=== PATIENT | female | born 1945 | race Caucasian/White ===

== ENCOUNTER → 2019-08-18 | Day surgery (SDC) | payer OTHER ==
[2019-08-15 12:14] LABS: Absolute Lymphocytes (CBC) 1.9 K/uL (0.7-4.9); Basophils % 1.3 % (0-1.3); Hematocrit 42.8 % (36.0-45.0); Lymphocytes % 29.4 % (15.3-44.8); MPV 9.3 fL (7.6-11.3); RBC Red Blood Cell Count 4.43 M/uL (3.86-4.86)
[2019-08-15 12:18] LABS: Urine Appearance CLEAR; Urine Bilirubin NEGATIVE (NEG); Urine Blood NEGATIVE (NEG); Urine Color YELLOW; Urine Glucose NEGATIVE (NEG); Urine Protein NEGATIVE (NEG)
[2019-08-15 12:21] LABS: Protime INR 1.01
[2019-08-15 12:24] LABS: Urine Microscopic Reflex NO UMIC
[2019-08-15 12:31] LABS: Potassium 4.1 mmol/L (3.5-5.1)
[~2019-08-18] MED LIST: CEFAZOLIN/SWI 2gm 0 GM/0 ML SYR ONE; NA CHLORIDE 0.9% 0 ML ONE; PHENAZOPYRIDINE 100MG TAB PO ONE
[2019-08-18 11:07] VITALS: BP 177/59; TEMP 98; O2SAT 100
== END ==
LOC: OR 10:24
PROVIDERS: ATTEND Obstetrics & Gynecology
DX: N99.3 Prolapse of vaginal vault after hysterectomy (principal); Z53.8 Procedure and treatment not carried out for other reasons; N81.12 Cystocele, lateral; N95.2 Postmenopausal atrophic vaginitis; N32.81 Overactive bladder; E11.65 Type 2 diabetes mellitus with hyperglycemia; I10 Essential (primary) hypertension; E03.9 Hypothyroidism, unspecified; E78.00 Pure hypercholesterolemia, unspecified; M81.0 Age-related osteoporosis without current pathological fracture
CPT/HCPCS: 36415; 80048; 81003; 82947; 85025; 85610; 85730; 86850; 86900; 86901; J0690; J7030

== ENCOUNTER 2019-08-23 10:37 | Observation (INO) | payer OTHER ==
[2019-08-23] MEDS ORDERED: PHENAZOPYRIDINE 100MG TAB PO ONE ×2 (10:50→10:53)
[2019-08-23] MEDS ORDERED: Ringers Lactate 1,000 ML IV ONE ×4 (10:53→18:49)
[2019-08-23] MEDS ORDERED: CEFAZOLIN/SWI 2gm 2 GM/20 ML SYR ONE (10:53)
[2019-08-23] MEDS ORDERED: FENTANYL CITR 250 MCG/5 ML ONE (11:02)
[2019-08-23] MEDS ORDERED: MIDAZOLAM HCL 2 MG/2 ML INJ ONE (11:02)
[2019-08-23] MEDS ORDERED: ROCURONIUM 50 MG/5 ML VIAL IV ONE (11:02)
[2019-08-23] MEDS ORDERED: dexAMETHasone 10 MG/ML VIAL ONE (11:02)
[2019-08-23] MEDS ORDERED: LIDOCAINE 2% MPF 5 ML VIAL ONE (11:02)
[2019-08-23] MEDS ORDERED: propofoL 200 MG/20 ML VIAL IV ONE (11:02)
[2019-08-23] MEDS ORDERED: NA CIT/CITRIC AC 30 ML ORAL UDC PO ONE (11:30)
[2019-08-23] MEDS ORDERED: NA CIT/CITRIC AC 30 ML ORAL UDC ONE (11:31)
[2019-08-23] MEDS ORDERED: NA CHLORIDE 0.9% 100 ML IV ONE (11:45)
[2019-08-23] MEDS ORDERED: CEFAZOLIN/SWI 1gm 1 GM/10 ML SYR ONE (11:46)
[2019-08-23] MEDS ORDERED: BUPIVACAINE 0.25% PF 30 ML VIAL ONE (12:03)
[2019-08-23] MEDS ORDERED: GLYCOPYRROLATE 0.2 MG/ML SYR ONE ×4 (12:42→15:31)
[2019-08-23] MEDS: VASOPRESSIN 20 UNIT/ML VIAL ONE ×2 (13:13→14:30)
[2019-08-23] MEDS ORDERED: FENTANYL CITR 100 MCG/2 ML ONE (16:08)
[2019-08-23] MEDS ORDERED: NEOSTIGMINE 1 MG/ML -10 ML VIAL ONE (16:08)
[2019-08-23] MEDS ORDERED: CEFAZOLIN SODIUM 1 GM/VIAL ONE (16:21)
[2019-08-23] MEDS ORDERED: PROMETHAZINE INJ 25 MG/ML AMP IV PRN (17:46)
[2019-08-23] MEDS ORDERED: MEPERIDINE HCL 50 MG/ML IV PRN (17:46)
[2019-08-23] MEDS ORDERED: ONDANSETRON 4 MG/2 ML VIAL IV PRN (17:46)
[2019-08-23] MEDS ORDERED: GLUCAGON 1 MG/VIAL IM PRN (17:51)
[2019-08-23] MEDS ORDERED: D50W 25 GM/50 ML SYRINGE/VIAL IV PRN (17:51)
[2019-08-23] MEDS ORDERED: Ringers Lactate 1,000 ML IV SCH (18:00)
[2019-08-23] MEDS: MORPHINE 4 MG/ML SYR ONE ×2 (18:34→18:50)
[2019-08-23 19:01] VITALS: O2SAT 94
[2019-08-23 20:39] VITALS: BMI 25.7
[2019-08-23] MEDS: atenoloL 25 MG TAB PO SCH (21:00)
[2019-08-23] MEDS ORDERED: INSULIN -REGULAR HUMAN 50 UNIT/0.5 ML ML SQ SCH (21:00)
[2019-08-23] MEDS ORDERED: INSULIN -REGULAR HUMAN 50 UNIT/0.5 ML ML ONE (21:35)
[2019-08-24] MEDS: CEFAZOLIN/SWI 1gm 1 GM/10 ML SYR IVP SCH (00:53)
[2019-08-24] MEDS: HYDROCODONE/APAP 5/325 MG TAB PO PRN ×3 (04:35→14:59)
[2019-08-24 05:27] LABS: Absolute Lymphocytes (CBC) 1.6 K/uL (0.7-4.9); Basophils % 0.3 % (0-1.3); Hematocrit 35.7 % (36.0-45.0); Lymphocytes % 11.7 % (15.3-44.8); MPV 9.2 fL (7.6-11.3)
[2019-08-24] MEDS: LEVOTHYROXINE SOD 0.088 MG TAB PO SCH (06:00)
[2019-08-24] MEDS ORDERED: PANTOPRAZOLE 40MG TABLET PO SCH (06:30)
[2019-08-24] MEDS: atenoloL 25 MG TAB PO SCH ×2 (08:48→21:00)
[2019-08-24] MEDS: GLIMEPIRIDE 2 MG TABLET PO SCH (08:49)
[2019-08-24] MEDS: METFORMIN ER 500 MG TAB PO SCH (08:49)
[2019-08-24] MEDS: hydroCHLOROthiazide 12.5 MG CAP PO SCH (08:50)
[2019-08-24] MEDS ORDERED: LOSARTAN POTASSIUM 50 MG TABLET PO SCH (09:00)
[2019-08-24] MEDS: ACETAMINOPHEN 500 MG TAB PO PRN (22:57)
[2019-08-25] MEDS: LEVOTHYROXINE SOD 0.088 MG TAB PO SCH (06:00)
[2019-08-25] MEDS: ACETAMINOPHEN 500 MG TAB PO PRN ×2 (07:25→12:53)
[2019-08-25] MEDS: HYDROCODONE/APAP 5/325 MG TAB PO PRN ×2 (08:23→15:10)
[2019-08-25] MEDS: CEFAZOLIN/SWI 1gm 1 GM/10 ML SYR IVP SCH (09:00)
[2019-08-25] MEDS: GLIMEPIRIDE 2 MG TABLET PO SCH (09:05)
[2019-08-25] MEDS: METFORMIN ER 500 MG TAB PO SCH (09:05)
[2019-08-25] MEDS: hydroCHLOROthiazide 12.5 MG CAP PO SCH (09:05)
[2019-08-25] MEDS: atenoloL 25 MG TAB PO SCH (09:05)
[2019-08-25] MEDS ORDERED: LOSARTAN POTASSIUM 50 MG TABLET PO SCH (09:05)
[2019-08-25 17:00] VITALS: BP 157/77; TEMP 98.4
--- NOTE | 2019-08-26 08:32 | DS ---
Date of Discharge: 08/25/2019 Preoperative Diagnosis: Pelvic fluid prolapse and occult stress urinary incontinence. Discharge Diagnoses: 1.Pelvic fluid prolapse and occult stress urinary incontinence. 2.Diabetes. 3.Hypertension, preexisting. Hospital Course: Patient was electively admitted to the hospital for surgery to repair her prolapse. Once this was done, she was admitted to the floor for recovery. Next morning on postop day #1 she tolerated clear liquids well, however, still nauseous. No flatus was passed. The patient was very s edated and did not appear to be well oriented and still under the effect of the sedative and anesthet ic. Her blood sugars were still less than 200, did not need to be covered under the mild insulin sli ding scale, however, she was given her home medications for hypertension and diabetes and she was wel l managed throughout her stay. She also received Ancef 1 g q.8 hours in the first 24 hours postop. Today on postop day #2 she has been passing flatus, ambulating, tolerating soft diet. She had a void ing trial done after removal of catheter on postop day 1 yesterday, did not pass it, had 900 residual after emptying 150, over distended. Most likely the bladder scan showed 500 and then later found to have 900 when she was cathed. The Swift catheter was reinserted at that time and left in place. She will be discharged home today with the Swift catheter. Overall since she has recovered well and is passing flatus, her abdomen is much less distended. She will be discharged home. She has all discharge instructions to call that a re typed up and antibiotics Augmentin 500 p.o. b.i.d. for 7 days. This is because of the superficial enterotomy repair that was done. Then she was also given instructions for a soft diet due to lisa lin. Then she has pain medication that has been prescribed to her. She also has instructions for removal of Swift catheter when she goes home and then she will come to the office on Thursday at 8:30 f or a voiding trial. She also was given instructions to take probiotics when she gets home and then call with any questions to the office number to talk w ith any concerns. PARVEEN Voice ID: [id number] Report ID: [id number]
--- NOTE | 2019-08-29 01:09 | OP ---
Surgeon: Candis Maravilla MD Manager Product Marketing: Ruth Thompson. 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 Procedures Performed: 1.Laparoscopy, bilateral salpingo-oophorectomy, repair of superficial sigmoid laceration. 2.Vaginal anterior and posterior repairs, right sacrospinous ligament fixation colpopexy, posterior enterocele repair and perineorrhaphy, mid urethral sling, cystoscopy (TVT). Anesthesia: General endotracheal. Specimens: Bilateral ovaries. Complications: Superficial sigmoid laceration that require intraoperative consult. I repaired the l acerations with sutures, did not need any drains or further procedures. Estimated Blood Loss: 100. Urine Output: Greater than 300. Findings: POP-Q 0, +2, -3, 4, moderate 6, -1, 0 NA. Indications For Procedure: Patient is a 74-year-old with prolapse. She has been offered observation physical therapy pessary management and surgical treatment after she understood the benefits and ris ks of all the procedures and her quality of life and she wanted to proceed with surgical repair. The surgical repair options discussed about laparoscopic and vaginal procedures, laparoscopic sacral col popexy was reviewed with the patient and vaginal apical suspension with anterior repairs was also rev iewed as an alternative. On urodynamic testing she had stress urinary incontinence, so plan was to p erform a mid urethral sling as well using a transobturator approach. Discussed all these, possible p erineorrhaphy was discussed with the patient. She had medical clearance and she was well controlled with her diabetes, A1c less than 7. Patient was brought into the hospital electively for the procedure. 2 g of Ancef were given. She wa s taken back to OR. After re-consenting her in the preop area, her daughter was present, we discusse d the alternatives of surgery including observation, pessary, and physical therapy. We also discusse d about the complications, including bleeding, infection, injury to the bowel, bladder, ureters, urin morena retention, need for self catheterization, need for possible revision of the sling if the graft wa s too tight, also discussed about mesh exposure, erosion, very rare complications including fistula, were all reviewed with the patient and discussed about potential dyspareunia. Once all these were re viewed and she wanted to proceed with the procedure, then she was taken back to the OR. Description Of Procedure: She was taken back to OR, placed in supine fashion on the operating table with general anesthesia given. She was placed in a dorsal lithotomy position and Joseph stirrups, arm s tucked by the side. Abdomen, vulva, vagina, and perineum were prepped and draped in a sterile fash ion. Swift was placed to drain the bladder and the vaginal manipulator from [employer] was introduced an d left in place. 1 cm infraumbilical incision was made with a scalpel using the open laparoscopy technique. Fascia wa s incised, tagged with 0 Vicryl sutures, peritoneum entered bluntly, retractors were placed, Renée i ntroduced after insufflation site of entry was checked with the help of the 10 scope, 30 degree lens. No injury. Upper and lower abdominal surfaces were all visualized. There were adhesions of the la rge bowel to the vaginal vault to both lateral greenfield. The small bowel adhesions and appendix adhesio ns in the right lower quadrant. Both ovaries and tubes were in place and the 1 on the right was scar red with the bowel and the appendix. Patient was placed in Trendelenburg. A 5 mm suprapubic and two 8 mm right and left lateral ports wer e placed in the lower quadrants after injecting with Marcaine. After the ports were placed without a ny problems, then the adhesions were taken down systematically by push-spread technique. First, the small bowel was picked up and adhesions were taken down. The appendix was picked up and taken down f rom the peritoneum of the lateral pelvic wall sidewall at the right lower quadrant. It was from the ovary and once the ovary was free, the bowel was retracted superiorly. Then the adhesions of the large bowel to the right sidewall were taken from the vaginal cuff were taken down with sharp scissors, then went over to the left sidewall and these were taken down all the way from below the na tural attachment of the sigmoid in the left lower quadrant. All the adhesions were taken down exposi ng the entire pelvic cavity and the bowel retracted appropriately using 3-0 Monocryl sutures on the s igmoid epiploica through the left upper quadrant incision using the Rylan-Brent needle. The retr action on the bowel was pulled up. Then the presacral space was inspected. No problems. Prior to t he patient going into surgery she recollected that she had some kind of a procedure at the time of he r hysterectomy, which she was not sure was done for which of her symptoms. She did mention that this procedure was done to tuck her muscles to her back or some structure to her back and she had back an d buttock pain for a few weeks that she can recollect postop, which eventually resolved. This sounde d like a procedure for vaginal apex suspension or probably a prolapse repair, however, there was no e vidence of any scar in the presacral space. Once the vaginal cuff was visualized, the peritoneum was incised with scissors and the vesicovaginal space was started with the dissection. The bladder seem ed extremely adhered to the anterior vaginal wall push-spread technique and windows were made here luz diaz down the bladder after dissecting about 3 cm in the midline from the vaginal apex. There was si gnificant scarring on both sides. Despite this once the bladder was taken down to this 2-1/2 cm to 3 cm level from the apex, the tip of the small bipolar scraped the superficial part of the sigmoid col on that was retracted superiorly and so once this was visualized, we went ahead and called our [facility] l surgeon, Dr. Salazar for visualization. There was no evidence of any stool soiling on the instrume nt or visually. The laceration was superficial on the serosa just barely into the muscularis. His a dvice was to put in silk sutures interrupted x2 to imbricate this defect and leave this alone. This was done with the help of 3-0 silk and 2 intracorporeal sutures were placed with knots tied intracorp oreally. Once this was done, I decided that given the adhesions and inability to dissected further d own satisfactorily on the anterior wall and given her vaginal length, which was only about 6 cm, prob ably a bit shorter and the sigmoid laceration that I will abort the procedure abdominally and go down vaginal. At this point both tubes and ovaries were still present in this postmenopausal lady, since the adhesions were already taken down the infundibulopelvic ligaments were identified and isolated a nd then the IP was taken down and the tube and ovary were dissected free from the lateral wall, first on the right side, then on the left side and they were retrieved through the 10 port. Then, thoroug h irrigation and suction of the pelvic cavity was performed. No evidence of any other injury. The r etention suture was removed and then all the ports were removed. The 10 port was closed with the hel p of the tagged 0 Vicryl sutures, tied to each other. All the skin incisions closed with the help of interrupted 4-0 Vicryl sutures. After that area was draped, we went vaginal. The ureterovesical junction was identified and picked u p with an Allis clamp. The apex of the vagina was picked up with another Allis. Then this space abo ut 20 mL of dilute vasopressin 20 units mixed in 50 mL of normal saline 20 mL was injected. Midline incision made, extended above and below all the way to the apex and the UVJ laterally dissected the b ladder away. The anterior vaginal wall was well laid out from [id number]. Then imbricating suture was placed to close the central bladder and reduce the central aspect of the bladder, the center asp ect of the anterior wall. Then without shortening the vagina the sutures on the connective tissue in ferior to the vesicovaginal space were placed with 2-0 PDS, 3 interrupted sutures were placed to brin g the fascia from the lateral aspects together in the midline and the vaginal epithelial closure was performed with the help of a 2-0 Vicryl in a continuous running horizontal mattress fashion once this suture was tied. There was good reduction of the anterior wall. Next procedure to be done was the apical suspension. The hymen was picked up with 2 Allis clamps. Central posterior wall in the mid canal was picked up a s well with another Allis, injected the perineal area and the posterior wall with another 20 mL of va sopressin dilute solution. Then triangular skin incision was made on the perineum. This was dissect ed. Then the rectovaginal space was entered. Vaginal epithelium and sub epithelium were dissected a way from the rectovaginal septum. There was detachment in the inferior aspect in a transverse and ve rtical fashion. The vertical defect laterally was on the right and the transverse defect was in the distal part of the rectovaginal septum and from the perineal body. The perineal body was p ort as well in the proximal part, then superiorly the posterior enterocele was obvious. So, dissecti on was performed to enter the posterior enterocele. The rectovaginal septum or connective tissue was dissected away laterally exposed and the perineal body was exposed as well. The scar was taken down on the lateral aspects. Then after getting to the vaginal apex, the posterior enterocele was separa ashutosh from [id number] and then this was plicated with the help of 3-0 Vicryl suture x1. Once this wa s reduced, I was able to get into the right pararectal space. A skilled spine was palpated, the sacr ospinous ligament was palpated as well. There was difficulty opening up the space clearly and sweepi ng the rectum medially easily. Tip of a long hemostats had to be used to get into this space and pus hed posteriorly and medially to clear the connective tissue off the sacrospinous ligament. I suspect that this space has been operated on before and possibly that there was a stitch attachment which is what the patient had referred to just in the preop area. She had no recollection of this prior to t he discussion on the day of surgery. Carefully once the scar was dissected and the sacrospinous ligament was exposed, the mid ligament was identified and 0 Prolene sutures x2 were placed using the Capio device in the mid to lateral third o f the ligament. Once these were placed, they were held on 2 clamps then the potential distal uterosa cral ligaments were grasped with Allis clamps after dissecting past the vaginal apex and then once th kodi were held on the respective clamps, the Prolene sutures were passed, the medial 1 was passed thro ugh the 1 on the right and then the lateral suture on the sacrospinous was passed through both the le ft and the right distal uterosacral/connective tissue condensation at the top of the vaginal apex. N o penetration through the vaginal epithelium was noted. These were again retracted and kept aside on a straight and curved hemostats. Then the rectovaginal septum defect was closed with the help of 2-0 PDS in a continuous running fashion starting on the lef t side and closing the transverse distal rectovaginal septum to the perineal body. First, the perine al body was rebuilt with the help of 2-0 Vicryl interrupted sutures x2 from [id number]. This repai r was performed and a finger was placed in the rectum as well while performing this. Once the gloves were changed the sutures were tied, then the PDS suture was used to connect the recto vaginal septum to this reconstruct perineal body and then the repair on the right lateral vertical de fect was done, attaching it to the sidewall. Once all this was done and repaired, the posterior ente rocele was fully reduced, however, it was very difficult to take the retracted rectovaginal septum in the proximal edge all the way to the apex, so this was left alone having repaired the center with th e help of a continuous running 2-0 PDS, I left this alone. On the rectovaginal exam, the area appear ed to be well supported. Then once the gloves were changed, the vaginal epithelium was barely trimme d to make the edges even. Previous scar was noted as well and this was trimmed. No vaginal length w as compromised. The suture with 2-0 Vicryl was started on top of the vaginal apex done for at least 2 cm to 3 cm, then the sacrospinous sutures were tied down, the vaginal apex did go all the way down to the sacrospinous here. Once this was done, the vaginal epithelial closure was performed. The dep th was good. There was no excessive tension of the apex and both anterior and posterior prolapse was well reduced along with the apex. The perineal body also appeared to be robust. Closure here with 3-0 Vicryl was done in a subcuticular fashion and tied inside the hymen. There was some stool soiling during the case while I was moving from the laparoscopic to the vaginal. She was re-prepped and draped for my vaginal procedure. No further stool swelling had occurred once the vaginal case was started. Two Allis clamps were placed in the mid urethral area after injecting with dilute vasopressin. The i ncision was made 1.5 cm in the mid urethral area. Dissection was performed with Metzenbaum scissors to create an opening underneath the vaginal subepithelial connective tissue in the plane going toward s the obturator space on the ipsilateral side with 45 degree angle to the horizontal and vertical dallas edinson hugging the inferior pubic ramus. Once the obturator membrane was perforated, the tract was open ed up on both sides, then wing guide was placed, transobturator TVT was opened and the spikes were pa ssed in the usual fashion on both sides exiting the lateral groin fold about 2 cm lateral to the groi n fold, a centimeter higher than the horizontal line dropped at the level of the external meatus with out getting as high as adductor tendon. Once these plastic dilators were pulled through, the plastic sheaths were held with Cheyenne's, tensioning under the mid urethra was done with the help of Jeannine m scissors. Once the mesh was tensioned appropriately, the sheaths were pulled out, mesh cut and flu shed with the skin and skin pulled so that it does not retract as a graft in the vaginal epithelial c losure with the help of 3-0 Vicryl in a continuous running horizontal mattress fashion was done. Cys toscopy was done after the catheter was removed and there was no evidence of electromechanical or the rmal injury to the bladder from dissecting either the top or from the vaginal dissection. Both ureteric orifices had strong jets of urine from both and no evidence of any foreign body in the bladder. The Swift was replaced. Vaginal packing was placed. Rectal exam was performed. No suture s in the bowel from the sacrospinous either. Instrument, needle, and sponge counts were correct. EB L was minimal. Patient tolerated the procedure well. She will follow up with me in for her postop. Another gram of Ancef was given to this patient. Swift left in place. SAJAN/BOONE Voice ID: [id number] Report ID: [id number]
== END 2019-08-25 18:45 | disposition home or self-care (01) ==
LOC: OR 10:37 → 2ND-WC 17:46 → OR 08-24 13:54 → 2ND-WC 08-24 13:55 → INTOOBSV 08-24 13:55 → OBSVTOIN 08-24 13:55
PROVIDERS: ADMIT Obstetrics & Gynecology; ATTEND Obstetrics & Gynecology
PROC: 0UT74ZZ Resection of Bilateral Fallopian Tubes, Percutaneous Endoscopic Approach (ICD-10-PCS; 2019-08-23)
PROC: 0DQN4ZZ Repair Sigmoid Colon, Percutaneous Endoscopic Approach (ICD-10-PCS; 2019-08-23)
PROC: 0USG7ZZ Reposition Vagina, Via Natural or Artificial Opening (ICD-10-PCS; 2019-08-23)
PROC: 0UQF0ZZ Repair Cul-de-sac, Open Approach (ICD-10-PCS; 2019-08-23)
PROC: 0JQC0ZZ Repair Pelvic Region Subcutaneous Tissue and Fascia, Open Approach (ICD-10-PCS; 2019-08-23)
PROC: 0WQN0ZZ Repair Female Perineum, Open Approach (ICD-10-PCS; 2019-08-23)
PROC: 0TSD0ZZ Reposition Urethra, Open Approach (ICD-10-PCS; 2019-08-23)
PROC: 0UT24ZZ Resection of Bilateral Ovaries, Percutaneous Endoscopic Approach (ICD-10-PCS; principal; 2019-08-23 12:00)
DX: N81.6 Rectocele (principal); N39.3 Stress incontinence (female) (male); K66.0 Peritoneal adhesions (postprocedural) (postinfection); K91.72 Accidental puncture and laceration of a digestive system organ or structure during other procedure; Y76.3 Surgical instruments, materials and obstetric and gynecological devices (including sutures) associated with adverse incidents; Y92.234 Operating room of hospital as the place of occurrence of the external cause; K59.00 Constipation, unspecified; I10 Essential (primary) hypertension; E11.9 Type 2 diabetes mellitus without complications
CPT/HCPCS: 85025; 36415; 86900; 86850; 86901; 82947 ×6; 88307; 58661; 44604; 57282; 57265; 57288; J2704; J2710; J2550; J2250; J3010 ×2; J1100; J0690 ×4; G0378 ×6; J7120 ×5; J2405; G0379; 88305

== ENCOUNTER 2019-08-27 13:21 | Emergency (ER) | payer OTHER ==
--- NOTE | 2019-08-27 14:25 | EDPHYS ---
Physician Documentation [facility] Name: Adri Serrano Age: 74 yrs Sex: Female : 1945 Arrival Date: 08/27/2019 Time: 13:24 Bed 13 Private MD: Montse Leonard C ED Physician Ozzy Granados HPI: 08/27 13:51 This 74 yrs old Female presents to ER via Wheelchair with complaints of zeinab Urinary Problem. 13:51 The patient presents with urinary symptoms, urinary retention. Onset: The zeinab symptoms/episode began/occurred this morning, today. Modifying factors: The symptoms are alleviated by nothing, the symptoms are aggravated by nothing. Associated signs and symptoms: The patient has no apparent associated signs or symptoms. Severity of symptoms: At their worst the symptoms were mild, in the emergency department the symptoms are unchanged. The patient is not sexually active. Historical: - Allergies: 13:36 Ibuprofen; sv - PMHx: 13:36 Thyroid problem; Diabetes - NIDDM; sv - PSHx: 13:36 Hysterectomy; Oophorectomy; Falopian tubes removed; "tummy tuck"; sv - Immunization history:: Flu vaccine is not up to date. - Social history:: Smoking status: Patient/guardian denies using tobacco. - Ebola Screening: : No symptoms or risks identified at this time. - Family history:: not pertinent. ROS: 13:51 Constitutional: Negative for fever, chills, and weight loss, Eyes: Negative for injury, zeinab pain, redness, and discharge, ENT: Negative for injury, pain, and discharge, Neck: Negative for injury, pain, and swelling, Cardiovascular: Negative for chest pain, palpitations, and edema, Respiratory: Negative for shortness of breath, cough, wheezing, and pleuritic chest pain, Back: Negative for injury and pain, : Negative for injury, bleeding, discharge, and swelling, Skin: Negative for injury, rash, and discoloration, Neuro: Negative for headache, weakness, numbness, tingling, and seizure, Psych: Negative for depression, anxiety, suicide ideation, homicidal ideation, and hallucinations, Allergy/Immunology: Negative for hives, rash, and allergies, Endocrine: Negative for neck swelling, polydipsia, polyuria, polyphagia, and marked weight changes, Hematologic/Lymphatic: Negative for swollen nodes, abnormal bleeding, and unusual bruising. 13:51 Abdomen/GI: Positive for abdominal pain, of the suprapubic area. Exam: 13:51 Constitutional: This is a well developed, well nourished patient who is awake, alert, zeinab and in no acute distress. Head/Face: Normocephalic, atraumatic. Eyes: Pupils equal round and reactive to light, extra-ocular motions intact. Lids and lashes normal. Conjunctiva and sclera are non-icteric and not injected. Cornea within normal limits. Periorbital areas with no swelling, redness, or edema. ENT: Nares patent. No nasal discharge, no septal abnormalities noted. Tympanic membranes are normal and external auditory canals are clear. Oropharynx with no redness, swelling, or masses, exudates, or evidence of obstruction, uvula midline. Mucous membranes moist. Neck: Trachea midline, no thyromegaly or masses palpated, and no cervical lymphadenopathy. Supple, full range of motion without nuchal rigidity, or vertebral point tenderness. No Meningismus. Chest/axilla: Normal chest wall appearance and motion. Nontender with no deformity. No lesions are appreciated. Cardiovascular: Regular rate and rhythm with a normal S1 and S2. No gallops, murmurs, or rubs. Normal PMI, no JVD. No pulse deficits. Respiratory: Lungs have equal breath sounds bilaterally, clear to auscultation and percussion. No rales, rhonchi or wheezes noted. No increased work of breathing, no retractions or nasal flaring. Back: No spinal tenderness. No costovertebral tenderness. Full range of motion. Skin: Warm, dry with normal turgor. Normal color with no rashes, no lesions, and no evidence of cellulitis. MS/ Extremity: Pulses equal, no cyanosis. Neurovascular intact. Full, normal range of motion. Neuro: Awake and alert, GCS 15, oriented to person, place, time, and situation. Cranial nerves II-XII grossly intact. Motor strength 5/5 in all extremities. Sensory grossly intact. Cerebellar exam normal. Normal gait. Psych: Awake, alert, with orientation to person, place and time. Behavior, mood, and affect are within normal limits. 13:51 Abdomen/GI: Inspection: abdomen appears normal, Bowel sounds: normal, Palpation: mild abdominal tenderness, in the suprapubic area, Liver: no appreciated palpable abnormalities, Hernia: not appreciated. Vital Signs: 13:36 BP 161 / 69; Pulse 61; Resp 17; Temp 97; Pulse Ox 94% ; Weight 58.97 kg; Height 5 ft. 0 sv in. (152.40 cm); 14:30 BP 163 / 65; Pulse 63; Resp 17; Pulse Ox 99% on R/A; rb1 15:10 BP 164 / 60; Pulse 56; Resp 17; Pulse Ox 97% on R/A; Pain 3/10; rb1 13:36 Body Mass Index 25.39 (58.97 kg, 152.40 cm) sv MDM: 13:26 Patient medically screened. [facility] 13:55 Data reviewed: vital signs, nurses notes, lab test result(s), urinalysis. [facility] 08/27 13:56 Order name: Urine Culture [facility] 08/27 13:56 Order name: Urine Dipstick-Ancillary (obtain specimen); Complete Time: 14:52 [facility] Administered Medications: No medications were administered Disposition: 08/27/19 14:24 Discharged to Home. Impression: Dysuria. - Condition is Stable. - Discharge Instructions: Dysuria, Swift Catheter Care, Adult, Swift Catheter Care, Adult, [id number]. - Medication Reconciliation Form, Thank You Letter, Antibiotic Education, Prescription Opioid Use form. - Follow up: Candis Maravilla MD; When: 1 - 2 days; Reason: Recheck today's complaints, Continuance of care, Re-evaluation by your physician. - Problem is new. - Symptoms have improved. Signatures: Dispatcher [employer] [facility] Tram Ramírez RN RN Ozzy Murray MD MD cha Barber, Rebecca, RN RN rb1 Corrections: (The following items were deleted from the chart) 14:21 13:50 Misc. Order ordered. [place] [id number] 15:19 14:24 08/27/2019 14:24 Discharged to Home. Impression: Dysuria. Condition is Stable. rb1 Forms are Medication Reconciliation Form, Thank You Letter, Antibiotic Education, Prescription Opioid Use. Follow up: Candis Maravilla; When: 1 - 2 days; Reason: Recheck today's complaints, Continuance of care, Re-evaluation by your physician. Problem is new. Symptoms have improved. zeinab
--- NOTE | 2019-08-27 14:25 | ER ---
Nurse's Notes [facility] Name: Adri Serrano Age: 74 yrs Sex: Female : 1945 Arrival Date: 08/27/2019 Time: 13:24 Bed 13 Private MD: Montse Leonard C Diagnosis: Dysuria Presentation: 08/27 13:33 Presenting complaint: Patient states: has not had as much urine output as she was sv having since 0100 today, pt has a michele catheter. Reports having sx with Dr Maravilla recently and had her ovaries, fallopian tubes removed and a cystocele. Transition of care: patient was not received from another setting of care. Onset of symptoms was August 27, 2019. Risk Assessment: Do you want to hurt yourself or someone else? Patient reports no desire to harm self or others. Initial Sepsis Screen: Does the patient meet any 2 criteria? No. Patient's initial sepsis screen is negative. Does the patient have a suspected source of infection? No. Patient's initial sepsis screen is negative. Care prior to arrival: None. 13:33 Method Of Arrival: Wheelchair sv 13:33 Acuity: LAMAR 3 sv Historical: - Allergies: 13:36 Ibuprofen; sv - PMHx: 13:36 Thyroid problem; Diabetes - NIDDM; sv - PSHx: 13:36 Hysterectomy; Oophorectomy; Falopian tubes removed; "tummy tuck"; sv - Immunization history:: Flu vaccine is not up to date. - Social history:: Smoking status: Patient/guardian denies using tobacco. - Ebola Screening: : No symptoms or risks identified at this time. - Family history:: not pertinent. Screenin:17 Abuse screen: Denies threats or abuse. Nutritional screening: No deficits noted. rb1 Tuberculosis screening: No symptoms or risk factors identified. Fall Risk None identified. Assessment: 13:30 General: Appears in no apparent distress. comfortable, Behavior is calm, cooperative, rb1 Denies fever. Pain: Complains of pain in suprapubic area Pain currently is 6 out of 10 on a pain scale. Neuro: Level of Consciousness is awake, alert, obeys commands, Oriented to person, place, time, situation. Cardiovascular: Capillary refill < 3 seconds is brisk in bilateral fingers. Respiratory: Airway is patent Respiratory effort is even, unlabored, Respiratory pattern is regular, symmetrical. GI: No signs and/or symptoms were reported involving the gastrointestinal system. : Reports Concerned that she hasn't had much urine output since 0100 this morning. Reports that urine hasn't been flowing into the bag. Derm: Skin is pink, warm \\T\\ dry. 14:17 Reassessment: Emptied and measured pt. Michele, 500 ml output since 0100 this morning. rb1 Pt. is averaging 38.46 ml/hr, urine is clear, light yellow. After emptying the Michele, urine began to flow again, no blockage noted. Provider notified. Received verbal order to cancel the irrigation of the Michele. 15:10 Reassessment: Patient appears in no apparent distress at this time. Patient and/or rb1 family updated on plan of care and expected duration. Pain level reassessed. Patient is alert, oriented x 3, equal unlabored respirations, skin warm/dry/pink. Clear, yellow urine is draining into the Michele bag. Vital Signs: 13:36 BP 161 / 69; Pulse 61; Resp 17; Temp 97; Pulse Ox 94% ; Weight 58.97 kg; Height 5 ft. 0 sv in. (152.40 cm); 14:30 BP 163 / 65; Pulse 63; Resp 17; Pulse Ox 99% on R/A; rb1 15:10 BP 164 / 60; Pulse 56; Resp 17; Pulse Ox 97% on R/A; Pain 3/10; rb1 13:36 Body Mass Index 25.39 (58.97 kg, 152.40 cm) sv ED Course: 13:24 Patient arrived in ED. ag5 13:25 Montse Leonard MD is Private Physician. ag5 13:25 Ozzy Granados MD is Attending Physician. zeinab 13:35 Triage completed. sv 13:36 Arm band placed on. sv 13:38 Ann Olson, TANYA is Primary Nurse. rb1 14:17 Patient has correct armband on for positive identification. Bed in low position. Call rb1 light in reach. Side rails up X 1. Pulse ox on. NIBP on. Warm blanket given. 14:24 Candis Maravilla MD is Referral Physician. zeinab 14:51 Urine collected: Michele catheter specimen, clear, natacha colored. jp3 14:52 Urine Culture Sent. jp3 15:18 No provider procedures requiring assistance completed. Patient did not have IV access rb1 during this emergency room visit. Administered Medications: No medications were administered Intake: 15:10 clear, yellow urine. rb1 Output: 15:10 Urine: 175ml (Michele); Total: 175ml. rb1 15:10 clear, yellow urine. rb1 Outcome: 14:24 Discharge ordered by . zeinab 15:18 Discharged to home ambulatory, with family. rb1 15:18 Condition: stable 15:18 Discharge instructions given to patient, Instructed on discharge instructions, follow up and referral plans. Demonstrated understanding of instructions, follow-up care, Prescriptions given X none 15:19 Patient left the ED. rb1 Signatures: Tram Ramírez, RN Ozzy Gooden MD MD cha Barber, Rebecca, RN RN rb1 Mauricio Ingram jp3 Anders Ortiz ag5
[2019-08-27 15:24] VITALS: TEMP 97
[2019-08-27 15:26] VITALS: BP 164/60; O2SAT 97
== END 2019-08-27 15:19 | disposition home or self-care (01) ==
LOC: ER 13:21
DX: T83.098A Other mechanical complication of other urinary catheter, initial encounter (principal); R30.0 Dysuria
CPT/HCPCS: 87086; 87088; 99283

== ENCOUNTER 2021-07-31 12:51 | Emergency (ER) | payer OTHER ==
[2021-07-31] MEDS ORDERED: LIDOCAINE VISCOUS 2% SOLN 15 ML UDC ONE (13:52)
[2021-07-31] MEDS ORDERED: MAGNES/ALUMIN/SIMET 30ML UCUP ONE (13:52)
--- NOTE | 2021-07-31 15:19 | EDPHYS ---
Physician Documentation [facility] Name: Adri Serrano Age: 76 yrs Sex: Female : 1945 Arrival Date: 07/31/2021 Time: 12:53 Bed 11 Private MD: ED Physician Margarito Miller HPI: 07/31 13:35 This 76 yrs old Female presents to ER via Ambulatory with complaints of Sore kb Throat. 13:35 The patient presents with sore throat. The patient describes throat pain as constant. kb Onset: The symptoms/episode began/occurred this morning, at 03:00. Severity of symptoms: At their worst the symptoms were mild, moderate, in the emergency department the symptoms are unchanged. Modifying factors: The symptoms are alleviated by nothing, the symptoms are aggravated by swallowing, Patient's oral intake status: good. Associated signs and symptoms: Pertinent positives: earache, Sore throat Pertinent negatives cough, fever, flu-like symptoms. The patient has not experienced similar symptoms in the past. The patient has not recently seen a physician. Historical: - Allergies: 13:00 Ibuprofen; tw2 - PMHx: 13:00 Diabetes - NIDDM; Thyroid problem; tw2 - Immunization history:: Client reports receiving the 2nd dose of the Covid vaccine. - Social history:: Smoking status: Patient denies any tobacco usage or history of. ROS: 13:34 Constitutional: Negative for fever, chills, and weight loss. kb 13:34 ENT: Positive for ear pain, sore throat. 13:34 All other systems are negative. Exam: 13:34 Constitutional: This is a well developed, well nourished patient who is awake, alert, kb and in no acute distress. Head/Face: Normocephalic, atraumatic. Respiratory: Respirations even and unlabored. No increased work of breathing, no retractions or nasal flaring. Skin: Warm, dry with normal turgor. Normal color. MS/ Extremity: Pulses equal, no cyanosis. Neurovascular intact. Full, normal range of motion. Neuro: Awake and alert, GCS 15, oriented to person, place, time, and situation. Moves all extremities. Normal gait. Psych: Awake, alert, with orientation to person, place and time. Behavior, mood, and affect are within normal limits. 13:34 ENT: External ear(s): are unremarkable, Ear canal(s): are normal, TM's: are normal, Nose: is normal, Mouth: is normal, Posterior pharynx: Tonsils: are normal in appearance, Uvula: normal, midline, swelling, is not appreciated, erythema, that is mild. Vital Signs: 13:01 BP 125 / 65; Pulse 80; Resp 19; Temp 99.2(TE); Pulse Ox 100% on R/A; Pain 9/10; tw2 MDM: 13:03 Patient medically screened. kb 13:34 Data reviewed: vital signs, nurses notes. Data interpreted: Pulse oximetry: on room air kb is 100 %. Interpretation: normal. Counseling: I had a detailed discussion with the patient and/or guardian regarding: the historical points, exam findings, and any diagnostic results supporting the discharge/admit diagnosis, lab results, the need for outpatient follow up, a family practitioner, to return to the emergency department if symptoms worsen or persist or if there are any questions or concerns that arise at home. 13:59 ED course: Visitor now at bedside and demanding covid test. kb 07/31 13:06 Order name: Strep; Complete Time: 13:34 kb 07/31 13:23 Order name: Throat Culture EDKS 07/31 13:57 Order name: COVID-19 SARS RT PCR (Document "Date of Onset" if Symptomatic); Complete kb Time: 15:18 Administered Medications: 14:01 Drug: GI Cocktail without - (Maalox Suspension 30 ml, Lidocaine Liquid 2 % 15 jh5 ml) Route: PO; Disposition: 17:59 Co-signature as Attending Physician, Margarito Miller MD I agree with the assessment and rn plan of care. Attestation: The patient's history, exam findings, diagnostics, and a summary of any interventions or procedures was reviewed in detail with Traci CHRISTINA. Disposition Summary: 07/31/21 15:18 Discharge Ordered Location: Home Condition: Stable kb Diagnosis - Pain in throat kb Followup: kb - With: Emergency Department - When: As needed - Reason: Worsening of condition Followup: kb - With: Private Physician - When: 2 - 3 days - Reason: Recheck today's complaints, Continuance of care, Re-evaluation by your physician Discharge Instructions: - Discharge Summary Sheet kb - Sore Throat, [id number] kb Forms: - Medication Reconciliation Form kb - Thank You Letter kb - Antibiotic Education kb - Prescription Opioid Use kb Signatures: Dispatcher [employer] Traci Dewey FNP-C FNP-Ckb Nieto, Roman, MD MD rn Wise, Tara, RN RN tw2 Katrin Shaver RN RN [id number]
--- NOTE | 2021-07-31 15:19 | ER ---
Nurse's Notes [facility] Name: Adri Serrano Age: 76 yrs Sex: Female : 1945 Arrival Date: 07/31/2021 Time: 12:53 Bed 11 Private MD: Diagnosis: Pain in throat Presentation: 07/31 12:58 Chief complaint: Patient states: i woke up at 3 am with a sore throat. i took the tw2 echinacea and went back to sleep. i have been doing this for 30 years and normally it helps. this time it hasnt helped. it has gotten worse and worse all day. my doctor was going to do a video call at 4 today but i couldn't wait. it also has gotten painful in my ears. Coronavirus screen: sore throat, Client presents with at least one sign or symptom that may indicate coronavirus-19. Standard/surgical mask placed on the client. Provider contacted for isolation considerations. Ebola Screen: Patient denies travel to an Ebola-affected area in the 21 days before illness onset. Initial Sepsis Screen: Does the patient meet any 2 criteria? No. Patient's initial sepsis screen is negative. Does the patient have a suspected source of infection? No. Patient's initial sepsis screen is negative. Risk Assessment: Do you want to hurt yourself or someone else? Patient reports no desire to harm self or others. 12:58 Method Of Arrival: Ambulatory tw2 13:03 Onset of symptoms was July 31, 2021. tw2 13:03 Acuity: LAMAR 4 tw2 Triage Assessment: 13:01 General: Appears in no apparent distress. well groomed, Behavior is calm, cooperative, tw2 appropriate for age. Pain: Complains of pain in uvula, left aspect of posterior pharynx and right aspect of posterior pharynx. EENT: Reports pain in left ear and right ear when swallowing. Respiratory: Airway is patent Respiratory effort is even, unlabored, Respiratory pattern is regular, symmetrical. Historical: - Allergies: 13:00 Ibuprofen; tw2 - PMHx: 13:00 Diabetes - NIDDM; Thyroid problem; tw2 - Immunization history:: Client reports receiving the 2nd dose of the Covid vaccine. - Social history:: Smoking status: Patient denies any tobacco usage or history of. Screenin:12 Abuse screen: Denies threats or abuse. Denies injuries from another. Nutritional jh5 screening: No deficits noted. Tuberculosis screening: No symptoms or risk factors identified. Fall Risk None identified. Assessment: 13:10 General: Appears in no apparent distress. comfortable, slender. Pain: Complains of pain jh5 in uvula, left aspect of posterior pharynx and right aspect of posterior pharynx. Neuro: No deficits noted. Level of Consciousness is awake, alert, obeys commands, Oriented to person, place, time, situation, Appropriate for age Speech is normal. Cardiovascular: No deficits noted. Capillary refill < 3 seconds Patient's skin is warm and dry. Respiratory: Airway is patent Trachea midline Respiratory effort is even, unlabored, Respiratory pattern is regular, symmetrical, Breath sounds are clear. 13:20 EENT: Throat is reddened. [facility] Vital Signs: 13:01 BP 125 / 65; Pulse 80; Resp 19; Temp 99.2(TE); Pulse Ox 100% on R/A; Pain 9/10; tw2 ED Course: 12:53 Patient arrived in ED. as 13:01 Arm band placed on. tw2 13:03 Triage completed. tw2 13:03 [facility] Z[facility] F[facility]-C [facility] kb 13:03 Margarito Miller MD is Attending Physician. kb 13:10 Katrin Shaver, TANYA is Primary Nurse. [facility] 13:12 Patient has correct armband on for positive identification. Bed in low position. Call [facility] light in reach. Side rails up X 1. 13:12 No provider procedures requiring assistance completed. Patient did not have IV access [facility] during this emergency room visit. 13:19 Strep Sent. 5 Administered Medications: 14:01 Drug: GI Cocktail without - (Maalox Suspension 30 ml, Lidocaine Liquid 2 % 15 jh5 ml) Route: PO; Outcome: 15:18 Discharge ordered by . rut 15:20 Discharged to home [facility] 15:20 Condition: stable 15:20 Discharge instructions given to patient. 15:28 Patient left the ED. [facility] Signatures: Traci Zheng FNP-C FNP-Ckb Martinez, Amelia as Wise, Tara, RN RN 2 Katrin Shaver RN RN [facility]
[2021-07-31 15:40] VITALS: BP 125/65; TEMP 99.2; O2SAT 100
== END 2021-07-31 15:28 | disposition home or self-care (01) ==
LOC: ER 12:51
DX: J02.9 Acute pharyngitis, unspecified (principal); E11.9 Type 2 diabetes mellitus without complications; Z20.822 Contact with and (suspected) exposure to COVID-19
CPT/HCPCS: 87070; 87081; 99283; U0003

== ENCOUNTER 2023-11-09 07:38 | Day surgery (SDC) | payer OTHER ==
[2023-11-09 08:14] LABS: MCV 92.6 fL (80-100); MPV 7.8 fL (7.6-11.3); Platelets 203 thou/uL (152-406); RBC Red Blood Cell Count 4.32 M/uL (3.86-4.86)
[2023-11-09 08:21] LABS: Protime INR 0.99
[2023-11-09 08:33] LABS: Albumin 3.7 g/dL (3.4-5.0); Bilirubin Direct 0.2 mg/dL (0-0.2); Bilirubin Indirect, Calculated 0.5 mg/dL (0.2-0.8); Bilirubin Total 0.7 mg/dL (0.2-1.0); Protein, Total 7.1 g/dL (6.4-8.2)
--- NOTE | 2023-11-09 11:13 | RAD REPORT ---
EXAM DESCRIPTION: RAD - Lumbar Puncture For Dx - 11/09/2023 10:31 am CLINICAL HISTORY: Lumbar Spine 3 Views dated 01/06/2019; Lumbar Spine 3 Views dated 01/30/2017 COMPARISON: None. TECHNIQUE: The procedure, risks and alternatives to the procedure were discussed with the patient in detail. After answering all questions, both oral and written consent were obtained. Time-out procedu re was performed. The patient was placed in an oblique prone position on the fluoroscopic table. The skin of the lower back was prepped and draped in the usual sterile fashion. After anesthetizing the skin and deeper sof t tissues with 1% lidocaine, a 22 gauge needle was advanced into the thecal sac at the L1-2 level. At the conclusion of the procedure the needle was withdrawn and a sterile bandage placed over the pun cture site. The patient tolerated the procedure well without immediate complications. Post-procedure care and precaution instructions were discussed with the patient before the LP procedure. Fluoroscopy time: 0.2 minutes IMPRESSION: Successful fluoroscopic guided lumbar puncture. All obtained fluid was sent to the lab f or studies requested by the referring physician.
[2023-11-09 11:20] VITALS: TEMP 98; BMI 23.4
[2023-11-09 12:45] LABS: CSF Glucose 137 mg/dL (40-70)
[2023-11-09 13:33] LABS: Body Fluid Source CSF; Color of fluid Colorless (COLORLESS); Fluid Total Volume 11 ml
[2023-11-09 13:35] LABS: Appearance CLEAR (CLEAR)
[2023-11-09 13:36] LABS: Body Fluid WBC 1 /mm^3
[2023-11-09 14:31] VITALS: BP 134/51; O2SAT 99
== END 2023-11-09 13:45 | disposition home or self-care (01) ==
LOC: DS 07:38
PROVIDERS: ATTEND Psychiatry & Neurology Neurology with Special Qualifications in Child Neurology
PROC: 009U3ZX Drainage of Spinal Canal, Percutaneous Approach, Diagnostic (ICD-10-PCS; principal; 2023-11-09)
PROC: B01BZZZ Fluoroscopy of Spinal Cord (ICD-10-PCS; 2023-11-09)
DX: G31.84 Mild cognitive impairment of uncertain or unknown etiology (principal); I10 Essential (primary) hypertension; E11.9 Type 2 diabetes mellitus without complications; E78.5 Hyperlipidemia, unspecified; E55.9 Vitamin D deficiency, unspecified; D51.9 Vitamin B12 deficiency anemia, unspecified; D52.9 Folate deficiency anemia, unspecified
CPT/HCPCS: 36415; 77003; 80076; 82542; 82945; 84157; 85027; 85610; 85730; 89050

== ENCOUNTER 2024-08-22 15:09 | Emergency (ER) | payer OTHER ==
--- NOTE | 2024-08-22 17:29 | RAD REPORT ---
EXAM: CT Head Brain Wo Cont HISTORY: head injury COMPARISON: 01/28/2024 MRI brain TECHNIQUE: Multiple contiguous axial images were obtained for a CT of the brain without contrast. Sag ittal and coronal reformats were performed. One or more of the following dose reduction techniques were used: Automated exposure control, adjus tment of the mA and kV according to patient size, and iterative reconstruction. Unless otherwise specified, incidental findings do not require dedicated imaging follow-up. FINDINGS: No evidence of hydrocephalus, intracranial hemorrhage, or extra-axial fluid collection. Moderate brain atrophy with moderate periventricular and deep white matter chronic microvascular isc hemic changes present. The calvarium is intact. The visualized paranasal sinuses and mastoid air cells are essentially clear . Incidentally noted torus palatinus. IMPRESSION: No evidence of acute intracranial abnormality. Chronic findings as above.
--- NOTE | 2024-08-22 17:32 | EDPHYS ---
Physician Documentation [facility] Name: Adri Serrano Age: 79 yrs Sex: Female : 1945 Arrival Date: 08/22/2024 Time: 15:09 Bed 16 Private MD: ED Physician Margarito Miller HPI: 08/22 16:43 This 79 yrs old Female presents to ER via Ambulatory with complaints of Head Injury rn Without LOC-Adult, Memory Loss, Dizziness, Trouble Walking. 16:43 The patient or guardian reports injury, pain. The complaints affect the forehead. rn 16:44 Onset: The symptoms/episode began/occurred 2 day(s) ago. Severity of symptoms: At their rn worst the symptoms were mild, in the emergency department the symptoms are unchanged. The patient has not experienced similar symptoms in the past. Family member reports fall from standing 2 days ago, hit head on cabinet, seen by Dr. Brady and recommended to come to ER for CT of the head to rule out subdural hematoma or hemorrhage. Family member reports not acting at baseline and slightly confused. No blood thinners. No other injury.. Historical: - Allergies: 15:52 Ibuprofen; hb - PMHx: 15:52 Diabetes - NIDDM; Thyroid problem; hb - Immunization history:: Adult Immunizations up to date. - Infectious Disease History:: Denies. - Family history:: not pertinent. - Hospitalizations: : No recent hospitalization is reported. - Social history:: Smoking status: unknown. ROS: 16:44 Constitutional: Negative for fever, chills, and weight loss, Neck: Negative for injury, rn pain, and swelling, Cardiovascular: Negative for chest pain, palpitations, and edema, Respiratory: Negative for shortness of breath, cough, wheezing, and pleuritic chest pain, Abdomen/GI: Negative for abdominal pain, nausea, vomiting, diarrhea, and constipation, MS/Extremity: Negative for injury and deformity, Skin: Negative for injury, rash, and discoloration, Neuro: Positive for head injury Exam: 16:44 Constitutional: This is a well developed, well nourished patient who is awake, alert, rn and in no acute distress. Head/Face: Normocephalic, atraumatic. Eyes: Pupils equal round and reactive to light, extra-ocular motions intact. Neck: No midline cervical tenderness MS/ Extremity: Pulses equal, no cyanosis. Neurovascular intact. Full, normal range of motion. Equal circumference. Neuro: Awake and alert, GCS 15, oriented to person, and situation. Cranial nerves II-XII grossly intact. Motor strength 5/5 in all extremities. Sensory grossly intact. Vital Signs: 15:51 BP 136 / 76; Pulse 82; Resp 16; Temp 98; Pulse Ox 100% on R/A; Weight 54.43 kg; Height hb 5 ft. 0 in. ; Pain 2/10; 18:05 BP 149 / 68; Pulse 85; Resp 16; Pulse Ox 98% ; cm10 15:51 Body Mass Index 23.44 (54.43 kg, 152.4 cm) hb 15:51 Pain Scale: Adult hb Cheyenne Coma Score: 16:44 Eye Response: spontaneous(4). Motor Response: obeys commands(6). Verbal Response: rn oriented(5). Total: 15. 17:30 Eye Response: spontaneous(4). Motor Response: obeys commands(6). Verbal Response: rn oriented(5). Total: 15. MDM: 15:29 Medical Screening Exam initiated rn 17:30 Differential diagnosis: Contusion of Hematoma on Intracranial bleed- Concussion rn cerebral contusion. Data reviewed: vital signs, nurses notes, radiologic studies, CT scan, and as a result, I will discharge patient. Counseling: I had a detailed discussion with the patient and/or guardian regarding the historical points, exam findings, and any diagnostic results supporting the discharge/admit diagnosis, radiology results, the need for outpatient follow up, to return to the emergency department if symptoms worsen or persist or if there are any questions or concerns that arise at home. Special discussion: Based on the patient's history, exam and DX evaluation, there is no indication for emergent intervention or inpatient TX. It is understood by the patient/guardian that if the SXs persist or worsen they need to return immediately for re-evaluation. I discussed with the patient/guardian in detail that at this point there is no indication for admission to the hospital. It is understood, however, that if the symptoms persist or worsen the patient needs to return immediately for re-evaluation. 08/22 15:37 Order name: CT Head Brain wo Cont; Complete Time: 17:30 rn Administered Medications: No medications were administered Disposition Summary: 08/22/24 17:31 Discharge Ordered Notes: Location: Home rn Problem: new rn Symptoms: have improved rn Condition: Stable rn Diagnosis - Unspecified injury of head, initial encounter rn - Concussion without loss of consciousness rn Followup: rn - With: Private Physician - When: As needed - Reason: Recheck today's complaints, Re-evaluation by your physician Discharge Instructions: - Discharge Summary Sheet rn - Head Injury, Adult rn Forms: - Medication Reconciliation Form rn - Antibiotic paramedic rn - Prescription Opioid Use rn - Patient Portal Instructions rn - Leadership Thank You Letter rn Signatures: Dispatcher [employer] EDMS Margarito Miller MD MD rn Baxter, Heather, RN RN hb Martinez, Clarissa, RN RN cm10 Corrections: (The following items were deleted from the chart) 15:38 15:38 Head Brain Wo Cont+CT.RAD.BRZ ordered. EDMS EDMS
--- NOTE | 2024-08-22 17:32 | ER ---
Nurse's Notes [facility] Name: Adri Serrano Age: 79 yrs Sex: Female : 1945 Arrival Date: 08/22/2024 Time: 15:09 Bed 16 Private MD: Diagnosis: Unspecified injury of head, initial encounter;Concussion without loss of consciousness Presentation: 08/22 15:51 Chief complaint: Headache after mechanical fall from standing 2 days ago. Son reports hb difficulty walking and forgetfulness since fall. Coronavirus screen: At this time, the client does not indicate any symptoms associated with coronavirus-19. Ebola Screen: No symptoms or risks identified at this time. Initial Sepsis Screen: Does the patient meet any 2 criteria? No. Patient's initial sepsis screen is negative. Does the patient have a suspected source of infection? No. Patient's initial sepsis screen is negative. Risk Assessment: Do you want to hurt yourself or someone else? Patient reports no desire to harm self or others. Onset of symptoms was August 20, 2024. 15:51 Method Of Arrival: Ambulatory hb 15:51 Acuity: LAMAR 3 hb Historical: - Allergies: 15:52 Ibuprofen; hb - PMHx: 15:52 Diabetes - NIDDM; Thyroid problem; hb - Immunization history:: Adult Immunizations up to date. - Infectious Disease History:: Denies. - Family history:: not pertinent. - Hospitalizations: : No recent hospitalization is reported. - Social history:: Smoking status: unknown. Screenin:05 [facility] ED Fall Risk Assessment (Adult) History of falling in the last 3 months, cm10 including since admission Yes- single mechanical fall (1 pt) Confusion or Disorientation No (0 pts) Intoxicated or Sedated No (0 pts) Impaired Gait No (0 pts) Mobility Assist Device Used No (0 pt) Altered Elimination No (0 pt) Score/Fall Risk Level 0 - 2 = Low Risk Oriented to surroundings, Maintained a safe environment, Hourly rounding (assess needs \T\ fall precautionary measures) done. Abuse screen: Denies threats or abuse. Denies injuries from another. Nutritional screening: No deficits noted. Tuberculosis screening: No symptoms or risk factors identified. Assessment: 18:04 General: Appears in no apparent distress. comfortable, Behavior is calm, cooperative. cm10 Pain: Denies pain. Neuro: No deficits noted. Level of Consciousness is awake, alert, obeys commands, Oriented to person, place, time, situation, Appropriate for age. Respiratory: No deficits noted. Airway is patent Respiratory effort is even, unlabored, Respiratory pattern is regular, symmetrical. Musculoskeletal: Range of motion: intact in all extremities. Vital Signs: 15:51 BP 136 / 76; Pulse 82; Resp 16; Temp 98; Pulse Ox 100% on R/A; Weight 54.43 kg; Height hb 5 ft. 0 in. ; Pain 2/10; 18:05 BP 149 / 68; Pulse 85; Resp 16; Pulse Ox 98% ; cm10 15:51 Body Mass Index 23.44 (54.43 kg, 152.4 cm) hb 15:51 Pain Scale: Adult hb Cheyenne Coma Score: 16:44 Eye Response: spontaneous(4). Motor Response: obeys commands(6). Verbal Response: rn oriented(5). Total: 15. 17:30 Eye Response: spontaneous(4). Motor Response: obeys commands(6). Verbal Response: rn oriented(5). Total: 15. ED Course: 15:14 Patient arrived in ED. im 15:29 Margarito Miller MD is Attending Physician. rn 15:52 Triage completed. hb 16:11 CT Head Brain wo Cont In Process Unspecified. EDMS 18:04 Arm band placed on right wrist. Patient placed in an exam room. cm10 18:05 Patient has correct armband on for positive identification. Provided Education on: cm10 FOLLOW-UP INSTRUCTIONS. 18:05 No provider procedures requiring assistance completed. Patient did not have IV access cm10 during this emergency room visit. Administered Medications: No medications were administered Medication: 18:05 VIS not applicable for this client. cm10 Outcome: 17:31 Discharge ordered by . rn 18:05 Discharged to home ambulatory, with family, cm10 18:05 Condition: good 18:05 Discharge instructions given to patient, Instructed on discharge instructions, follow up and referral plans. Demonstrated understanding of instructions, follow-up care, 18:07 Patient left the ED. cm10 Signatures: Dispatcher [employer] EDKY Margarito Miller MD MD rn Baxter, Heather RN TANYA Jackie Leary Paloma Gibbons RN RN cm10
[2024-08-22 23:54] VITALS: BP 136/76; TEMP 98; O2SAT 100
== END 2024-08-22 18:07 | disposition home or self-care (01) ==
LOC: ER 15:09
DX: S06.0X0A Concussion without loss of consciousness, initial encounter (principal); W18.30XA Fall on same level, unspecified, initial encounter
CPT/HCPCS: 70450; 99282

== ENCOUNTER 2024-09-09 17:11 | Emergency (ER) | payer OTHER ==
[2024-09-09 17:56] LABS: SARS-CoV-2 Antigen CONTROL BLUE LINE VIS/BG OK; SARS-CoV-2 Antigen Rapid Res Negative (Negative)
[2024-09-09] MEDS ORDERED: IPRATROPIUM BROM 0.5MG/2.5ML ONE (18:04)
[2024-09-09] MEDS ORDERED: predniSONE 20 MG TAB ONE (18:04)
[2024-09-09] MEDS ORDERED: LEVALBUTEROL 1.25 MG/3 ML NEB ONE (18:04)
[2024-09-09] MEDS ORDERED: AZITHROMYCIN 250 MG TAB ONE (18:05)
[2024-09-09] MEDS ORDERED: dexAMETHasone 4 MG/ML VIAL ONE (18:05)
--- NOTE | 2024-09-09 18:12 | EDPHYS ---
Physician Documentation [facility] Name: Adri Serrano Age: 79 yrs Sex: Female : 1945 Arrival Date: 09/09/2024 Time: 17:11 Bed 20 Private MD: ED Physician Ozzy Granados HPI: 09/09 18:03 This 79 yrs old Female presents to ER via Ambulatory with complaints of Sore zeinab Throat. 18:03 The patient presents with sore throat. The patient describes throat pain as burning. zeinab Onset: The symptoms/episode began/occurred 3 day(s) ago. Severity of symptoms: At their worst the symptoms were mild, in the emergency department the symptoms are unchanged. Associated signs and symptoms: Pertinent positives: cough. The patient has experienced similar episodes in the past, a few times. Historical: - Allergies: 17:24 Ibuprofen; db - PMHx: 17:24 Diabetes - NIDDM; Thyroid problem; db - Immunization history:: Adult Immunizations unknown. - Infectious Disease History:: Denies. - Social history:: Smoking status: Patient denies any tobacco usage or history of. ROS: 18:04 Constitutional: Negative for fever, chills, and weight loss, Eyes: Negative for injury, zeinab pain, redness, and discharge, Neck: Negative for injury, pain, and swelling, Cardiovascular: Negative for chest pain, palpitations, and edema, Abdomen/GI: Negative for abdominal pain, nausea, vomiting, diarrhea, and constipation, Back: Negative for injury and pain, : Negative for injury, bleeding, discharge, and swelling, MS/Extremity: Negative for injury and deformity, Skin: Negative for injury, rash, and discoloration, Neuro: Negative for headache, weakness, numbness, tingling, and seizure, 18:04 ENT: Positive for rhinorrhea, sinus congestion, sore throat, 18:04 Respiratory: Positive for cough, "sounds productive", Exam: 18:04 Constitutional: This is a well developed, well nourished patient who is awake, alert, zeinab and in no acute distress. Head/Face: Normocephalic, atraumatic. Eyes: Pupils equal round and reactive to light, extra-ocular motions intact. Lids and lashes normal. Conjunctiva and sclera are non-icteric and not injected. Cornea within normal limits. Periorbital areas with no swelling, redness, or edema. ENT: Nares patent. No nasal discharge, no septal abnormalities noted. Tympanic membranes are normal and external auditory canals are clear. Oropharynx with no redness, swelling, or masses, exudates, or evidence of obstruction, uvula midline. Mucous membranes moist. Neck: Trachea midline, no thyromegaly or masses palpated, and no cervical lymphadenopathy. Supple, full range of motion without nuchal rigidity, or vertebral point tenderness. No Meningismus. Chest/axilla: Normal chest wall appearance and motion. Nontender with no deformity. No lesions are appreciated. Cardiovascular: Regular rate and rhythm with a normal S1 and S2. No gallops, murmurs, or rubs. Normal PMI, no JVD. No pulse deficits. Abdomen/GI: Soft, non-tender, with normal bowel sounds. No distension or tympany. No guarding or rebound. No evidence of tenderness throughout. Back: No spinal tenderness. No costovertebral tenderness. Full range of motion. Female : Normal external genitalia. Skin: Warm, dry with normal turgor. Normal color with no rashes, no lesions, and no evidence of cellulitis. MS/ Extremity: Pulses equal, no cyanosis. Neurovascular intact. Full, normal range of motion., bilateral aka Neuro: Awake and alert, GCS 15, oriented to person, place, time, and situation. Cranial nerves II-XII grossly intact. Motor strength 5/5 in all extremities. Sensory grossly intact. Cerebellar exam normal. Normal gait. Psych: Awake, alert, with orientation to person, place and time. Behavior, mood, and affect are within normal limits. 18:04 Respiratory: mild respiratory distress is noted, Respirations: labored breathing, is not present, asymmetrical chest movement, is not seen, accessory muscle usage, is absent, grunting, is not present, nasal flaring, is not appreciated, Breath sounds: bronchial sounds, that are mild, are scattered, decreased breath sounds, that are mild, Respiratory rate: 77 Vital Signs: 17:23 BP 125 / 62; Pulse 77; Resp 18; Temp 97.8(O); Pulse Ox 98% ; Weight 54.43 kg; Height 5 db ft. 0 in. ; 18:00 BP 131 / 62; Pulse 70; Resp 18; Pulse Ox 100% ; me1 18:30 BP 121 / 48; Pulse 78; Resp 15; Pulse Ox 100% on R/A; me1 17:23 Body Mass Index 23.44 (54.43 kg, 152.4 cm) db MDM: 17:21 Medical Screening Exam initiated [facility] 18:06 Differential diagnosis: bronchitis, cocksackie virus, epiglottitis, group A strep zeinab tonsillitis, influenza, laryngitis, Mycoplasma Pharyngitis pharyngitis, tonsillitis, tracheobronchitis, upper respiratory infection, uvulitis, viral syndrome. Data reviewed: vital signs, nurses notes, lab test result(s), Flu: negative radiologic studies, plain films. Consideration of Admission/Observation Escalation of care including admission/observation considered. I considered the following discharge prescriptions or medication management in the emergency department Medications were administered in the Emergency Department. See MAR. Independent interpretation of the following test(s) in the Emergency Department X-Ray: My interpretation is cxr neg. Test considered but Not performed: Labs: no cbc, no comp. Historians other than the Patient: Daughter/Son: son. Care significantly affected by the following chronic conditions: Diabetes, thyroid issues. 09/09 17:21 Order name: Flu [facility] 09/09 17:21 Order name: SARS RAPID; Complete Time: 18:10 [facility] 09/09 17:21 Order name: Strep; Complete Time: 18:10 [facility] 09/09 17:58 Order name: Throat Culture [facility] 09/09 17:44 Order name: Chest Pa And Lat (2 Views) XRAY [facility] Administered Medications: 18:11 Drug: predniSONE PO 40 mg PO once Route: PO; me1 18:26 Follow up: Response: No adverse reaction me1 18:11 Drug: AZITHromycin PO 500 mg PO once Route: PO; me1 18:26 Follow up: Response: No adverse reaction me1 18:11 Drug: Levalbuterol Inhalation 2.5 mg Inhalation once Route: Inhalation; me1 18:26 Follow up: Response: No adverse reaction me1 18:11 Drug: Ipratropium Inhalation Aerosol 0.5 mg Inhalation once Route: Inhalation; me1 18:25 Follow up: Response: No adverse reaction me1 18:11 Drug: Dexamethasone PO 1 mg PO once; to nebulizer Route: PO; me1 18:25 Follow up: Response: No adverse reaction me1 Disposition Summary: 12/27/24 18:11 Discharge Ordered Notes: Location: Home [facility] Problem: new zeinab Symptoms: have improved zeinab Condition: Stable zeinab Diagnosis - Acute pharyngitis, unspecified zeinab - Acute upper respiratory infection, unspecified zeinab - Cough zeinab Followup: zeinab - With: Private Physician - When: 2 - 3 days - Reason: Recheck today's complaints, Continuance of care, Re-evaluation by your physician Discharge Instructions: - Discharge Summary Sheet zeinab - Pharyngitis zeinab - Sore Throat zeinab - Upper Respiratory Infection, Adult zeinab - Cool Mist Vaporizer zeinab - Pharyngitis, [id number] zeinab - Cough, Adult, [id number] zeinab - Cough, Adult zeinab Forms: - Medication Reconciliation Form zeinab - Antibiotic Education zeinab - Prescription Opioid Use zeinab - Patient Portal Instructions [facility] - Leadership Thank You Letter [facility] Prescriptions: - albuterol sulfate 90 mcg/actuation Inhalation HFA Aerosol Inhaler - inhale 2 puff INHALATION route every 4-6 hours as needed for shortness of zeinab breath or wheezing; 1 unit; Refills: 0, Product Selection Permitted - Zithromax Z-Hernando 250 mg Oral tablet - take 1 tablet ORAL route as directed for 5 days Day 1 - take two (2) tablets zeinab one time. Day 2, 3, 4 , 5 take one (1) tablet once daily.; 6 tablet; Refills: 0, Product Selection Permitted - Medrol (Hernando) 4 mg Oral Tablets, Dose Pack - take 1 tablet ORAL route as directed - follow package instructions; 1 packet; zeinab Refills: 0, Product Selection Permitted Signatures: Dispatcher [employer] Ozzy Sotelo MD MD cha Benton, Danielle, TANYA MARTÍNEZ Madeline Wills, TANYA RN me1 Corrections: (The following items were deleted from the chart) 17:44 17:44 Chest Pa And Lat (2 Views)+RAD.RAD.BRZ ordered. DAVIAN MARCELO
--- NOTE | 2024-09-09 18:12 | ER ---
Nurse's Notes [facility] Name: Adri Serrano Age: 79 yrs Sex: Female : 1945 Arrival Date: 09/09/2024 Time: 17:11 Bed 20 Private MD: Diagnosis: Acute pharyngitis, unspecified;Acute upper respiratory infection, unspecified;Cough Presentation: 09/09 17:23 Chief complaint: Patient states: SORE THROAT X 3 TO 5 DAYS WITH CLEARING THROAT. db Coronavirus screen: Client denies travel out of the [place] in the last 14 days. At this time, the client does not indicate any symptoms associated with coronavirus-19. Ebola Screen: Patient negative for fever greater than or equal to 101.5 degrees Fahrenheit, and additional compatible Ebola Virus Disease symptoms Patient denies exposure to infectious person. Patient denies travel to an Ebola-affected area in the 21 days before illness onset. No symptoms or risks identified at this time. Initial Sepsis Screen: Does the patient meet any 2 criteria? No. Patient's initial sepsis screen is negative. Does the patient have a suspected source of infection? No. Patient's initial sepsis screen is negative. Risk Assessment: Do you want to hurt yourself or someone else? Patient reports no desire to harm self or others. Onset of symptoms was September 04, 2024. 17:23 Method Of Arrival: Ambulatory db 17:23 Acuity: LAMAR 3 db Triage Assessment: 17:24 General: Appears in no apparent distress. comfortable, Behavior is calm, cooperative. db Pain: Complains of pain in left aspect of posterior pharynx and right aspect of posterior pharynx. EENT: Reports nasal congestion SORE THROAT. Neuro: Level of Consciousness is awake, alert, obeys commands, Oriented to person, place, time, situation. Respiratory: Airway is patent Respiratory effort is even, unlabored, Respiratory pattern is regular, symmetrical. Historical: - Allergies: 17:24 Ibuprofen; db - PMHx: 17:24 Diabetes - NIDDM; Thyroid problem; db - Immunization history:: Adult Immunizations unknown. - Infectious Disease History:: Denies. - Social history:: Smoking status: Patient denies any tobacco usage or history of. Screenin:41 [facility] ED Fall Risk Assessment (Adult) History of falling in the last 3 months, me1 including since admission No falls in past 3 months (0 pts) Confusion or Disorientation No (0 pts) Intoxicated or Sedated No (0 pts) Impaired Gait No (0 pts) Mobility Assist Device Used No (0 pt) Altered Elimination No (0 pt) Score/Fall Risk Level 0 - 2 = Low Risk Maintained a safe environment, Provided non-skid footwear, Hourly rounding (assess needs \T\ fall precautionary measures) done. Abuse screen: Denies threats or abuse. Nutritional screening: No deficits noted. Tuberculosis screening: No symptoms or risk factors identified. Assessment: 17:41 General: Appears ill, well groomed, well developed, well nourished, Behavior is calm, me1 cooperative, appropriate for age, Reports sore throat x 3-5 days. Pain: Complains of pain in mouth and right aspect of posterior pharynx and left aspect of posterior pharynx Pain does not radiate. Pain currently is 5 out of 10 on a pain scale. Quality of pain is described as tender, Pain began 3-5 days ago Is continuous. Neuro: Level of Consciousness is awake, alert, obeys commands, Oriented to person, place, time, situation, Appropriate for age. Cardiovascular: Patient's skin is warm and dry. Respiratory: Airway is patent Trachea midline Respiratory effort is even, unlabored, Respiratory pattern is regular, symmetrical, Breath sounds are clear bilaterally. GI: No signs and/or symptoms were reported involving the gastrointestinal system. : No signs and/or symptoms were reported regarding the genitourinary system. EENT: Throat is reddened Reports pain when swallowing. Derm: Skin is intact, is healthy with good turgor, Skin is pink, warm \T\ dry. Musculoskeletal: No signs and/or symptoms reported regarding the musculoskeletal system. Vital Signs: 17:23 BP 125 / 62; Pulse 77; Resp 18; Temp 97.8(O); Pulse Ox 98% ; Weight 54.43 kg; Height 5 db ft. 0 in. ; 18:00 BP 131 / 62; Pulse 70; Resp 18; Pulse Ox 100% ; me1 18:30 BP 121 / 48; Pulse 78; Resp 15; Pulse Ox 100% on R/A; me1 17:23 Body Mass Index 23.44 (54.43 kg, 152.4 cm) db ED Course: 17:15 Patient arrived in ED. im 17:21 Ozzy Granados MD is Attending Physician. [facility] 17:23 Arm band placed on Patient placed in an exam room. db 17:24 Triage completed. db 17:40 Madeline Wills, RN is Primary Nurse. me1 17:41 Patient has correct armband on for positive identification. Bed in low position. Call me1 light in reach. Side rails up X2. Provided Education on: POC. Verbalized understanding.. Client placed on continuous cardiac and pulse oximetry monitoring. NIBP monitoring applied. Pulse ox on. NIBP on. 17:41 COVID swab sent to lab. Flu and/or RSV swab sent to lab. Strep swab sent to lab. me1 17:41 No provider procedures requiring assistance completed. me1 18:13 Chest Pa And Lat (2 Views) XRAY In Process Unspecified. EDME 18:58 Patient did not have IV access during this emergency room visit. me1 Administered Medications: 18:11 Drug: predniSONE PO 40 mg PO once Route: PO; me1 18:26 Follow up: Response: No adverse reaction me1 18:11 Drug: AZITHromycin PO 500 mg PO once Route: PO; me1 18:26 Follow up: Response: No adverse reaction me1 18:11 Drug: Levalbuterol Inhalation 2.5 mg Inhalation once Route: Inhalation; me1 18:26 Follow up: Response: No adverse reaction me1 18:11 Drug: Ipratropium Inhalation Aerosol 0.5 mg Inhalation once Route: Inhalation; me1 18:25 Follow up: Response: No adverse reaction me1 18:11 Drug: Dexamethasone PO 1 mg PO once; to nebulizer Route: PO; me1 18:25 Follow up: Response: No adverse reaction me1 Medication: 17:41 VIS not applicable for this client. me1 Outcome: 18:11 Discharge ordered by . [facility] 18:58 Discharged to home ambulatory, with family, me1 18:58 Condition: stable 18:58 Discharge instructions given to patient, family, Instructed on discharge instructions, follow up and referral plans. medication usage, Demonstrated understanding of instructions, follow-up care, medications, Prescriptions given X 3, 18:59 Patient left the ED. me1 Signatures: Dispatcher [employer] [facility] Ozzy Granados MD MD cha Benton, Danielle, RN RN Jackie Pelaez Michelle, RN RN me1 Corrections: (The following items were deleted from the chart) 17:26 17:23 Pulse 77bpm; Resp 18bpm; Pulse Ox 98%; Temp 97.8F Oral; 54.43 kg; Height 5 ft. 0 db in.; BMI: 23.4; db 17:41 17:23 Chief complaint: Patient states: SORE THROAT X 3 TO 5 DAYS WITH CLEARING THROAT dbme1
[2024-09-09 19:04] VITALS: TEMP 97.8
[2024-09-09 19:06] VITALS: O2SAT 100
[2024-09-09 19:08] VITALS: BP 121/48
--- NOTE | 2024-09-09 19:18 | RAD REPORT ---
EXAMINATION: TWO VIEW CHEST XR CLINICAL INDICATION: Female, 79 years old. [facility] MA[facility] COUGH Bed Name: TECHNIQUE: 2 view radiographs of the chest were performed. COMPARISON: 04/13/2013 FINDINGS: The lungs are well inflated and clear. No pneumothorax or sizable effusion. The heart is normal in si ze. Mediastinal contours are unremarkable. IMPRESSION: No acute or significant abnormalities.
== END 2024-09-09 18:59 | disposition home or self-care (01) ==
LOC: ER 17:11
DX: J06.9 Acute upper respiratory infection, unspecified (principal); R05.9 Cough, unspecified; Z11.52 Encounter for screening for COVID-19; E11.9 Type 2 diabetes mellitus without complications; E07.9 Disorder of thyroid, unspecified
CPT/HCPCS: 87070; 36415; 87081; 87804 ×2; 71046; 99284; 87811; J7512; J1100; J7614; J7644

== ENCOUNTER 2024-09-12 11:16 | Inpatient (IN) | payer OTHER ==
[2024-09-12] MEDS ORDERED: NA CHLORIDE 0.9% 1,000 ML ONE ×3 (12:19→22:39)
[2024-09-12] MEDS ORDERED: ONDANSETRON 4 MG/2 ML VIAL ONE (12:19)
[2024-09-12 12:22] LABS: Absolute Basophils 0.1 K/uL (0-0.5); Absolute Lymphocytes (CBC) 2.6 K/uL (0.7-4.9); Absolute Monocytes 0.7 K/uL (0.1-1.3); Absolute Neutrophil 10.9 K/uL (1.8-8.0); Basophils % 0.5 % (0-1.3); Eosinophils % 0.2 % (0-4.4); Hematocrit 43.2 % (36.0-45.0); Hemoglobin 14.2 g/dL (12.0-15.0); Lymphocytes % 17.9 % (15.3-44.8); MCH 30.5 pg (27.0-35.0); MCHC 32.8 g/dL (32.0-36.0); MCV 92.8 fL (80-100); MPV 8.2 fL (7.6-11.3); Neutrophils % 76.4 % (41.7-73.7); Platelets 235 thou/uL (152-406); RBC Red Blood Cell Count 4.66 M/uL (3.86-4.86); Red Cell Distribution Width 13.4 % (12.1-15.2)
[2024-09-12 12:40] LABS: Albumin 3.7 g/dL (3.4-5.0); Anion Gap 11.8 mEq/L (5.0-15.0); Bilirubin Total 0.6 mg/dL (0.2-1.0); Globulin 3.6 g/dL (2.3-3.5); Potassium 3.8 mEq/L (3.5-5.1); Protein, Total 7.3 g/dL (6.4-8.2)
[2024-09-12] MEDS ORDERED: PROMETHAZINE INJ 25 MG/ML AMP ONE (13:58)
--- NOTE | 2024-09-12 14:10 | RAD REPORT ---
EXAMINATION: CT ABDOMEN AND PELVIS WITH CONTRAST CLINICAL INDICATION: Female, 79 years old.n/v/d;Abd pain TECHNIQUE: CT abdomen and pelvis was performed, after the administration of IV contrast, as per [facility] protocol. Axial, sagittal and coronal reconstructions were obtained. One or more of the following dose reduction techniques were used: Automated exposure control, adjustment of the mA and/o r kV according to patient size, and/or iterative reconstruction. Unless otherwise specified, incidental findings do not require dedicated imaging follow-up. [id number]. COMPARISON: 11/06/2021 FINDINGS: LOWER CHEST: No acute process identified.No significant pericardial effusion. Small hiatal hernia wit h circumferential thickening of the esophagus which could reflect esophagitis. UPPER GI: No significant abnormality. LIVER: Hepatic steatosis, but otherwise unremarkable. GALLBLADDER/BILE DUCTS: Cholelithiasis without CT evidence of acute cholecystitis.? PANCREAS: Atrophy, but otherwise unremarkable. SPLEEN: Unremarkable. ADRENALS: No adrenal masses. KIDNEYS AND URETERS: No hydronephrosis.Low density and/or too small to characterize renal lesions whi ch are statistically benign. ABDOMINAL AORTA AND OTHER VESSELS: Moderate atherosclerotic changes without aortic aneurysm. PERITONEUM: No abnormal free fluid. No free air. LYMPH NODES: No pathologic lymphadenopathy. ABDOMINAL WALL: Unremarkable SMALL BOWEL/COLON: Segmental inflammatory changes present at the small bowel with hyperenhancement. T his is likely in the proximal to mid ileum. Moderate colonic stool.Normal appendix. URINARY BLADDER: Underdistended but grossly unremarkable. REPRODUCTIVE ORGANS: Uterus surgically absent. No adnexal abnormality. MUSCULOSKELETAL: No acute or suspicious osseous abnormality. ADDITIONAL FINDINGS: None. IMPRESSION: Moderate length segment of small bowel wall thickening and mild hyperenhancement consistent with the presence of an enteritis. No bowel obstruction. Cholelithiasis without CT evidence of acute cholecystitis. Other incidental findings as noted above.
--- NOTE | 2024-09-12 15:08 | RAD REPORT ---
Abdomen Exam Limited: 09/12/2024 2:12 PM CLINICAL HISTORY: ABD PAIN STUDY: Limited right upper quadrant ultrasound of abdomen. COMPARISON: Prior films compared to CT Abdomen study dated same day FINDINGS: Liver: Limited evaluation but grossly unremarkable. Bile ducts: No intrahepatic or extrahepatic biliary ductal dilatation. Common bile duct measures 3 mm. Gallbladder: Cholelithiasis. No gallbladder wall thickening, pericholecystic fluid, or sonographic Mu rphy sign IMPRESSION: Cholelithiasis without sonographic evidence of acute cholecystitis.
--- NOTE | 2024-09-12 15:54 | RAD REPORT ---
EXAMINATION: CT HEAD WITHOUT CONTRAST CT CERVICAL SPINE WITHOUT CONTRAST CLINICAL INDICATION: Female, 79 years old. TRAUMA TECHNIQUE: Axial CT images from the skull base to the vertex without intravenous contrast. Axial CT i mages through the cervical spine were obtained without intravenous contrast. Sagittal and coronal reformatted images were created from the data set. Coronal and sagittal reformatted images were creat ed from the data set. One or more of the following dose reduction techniques were used: Automated exposure control, adjustment of the mA and/or kV according to patient size, and/or iterative reconstr uction. Unless otherwise specified, incidental findings do not require dedicated imaging follow-up. [id number]. COMPARISON: No prior exam. FINDINGS: Head: INTRACRANIAL: No acute intracranial hemorrhage. No hydrocephalus. No mass effect or midline shift. Mi ld chronic small vessel ischemic changes.Mild cerebral atrophy. VASCULATURE: No visualized abnormalities in the arteries or dural venous sinuses. SCALP/SKULL: No significant soft tissue or osseous abnormalities. SINUSES: The visualized paranasal sinuses and mastoid air cells are predominantly clear. Cervical spine: ALIGNMENT: Reversal the normal cervical lordosis is likely related to degenerative changes. BONE: Vertebral body heights are maintained. No aggressive osseous lesions. DEGENERATIVE CHANGES: Multilevel cervical spondylosis with varying degrees of neural foraminal narrow ing. No high-grade central spinal stenosis. SOFT TISSUE: No significant abnormalities in the soft tissue of the neck. The visualized lung apices are clear. IMPRESSION: No acute intracranial abnormality. No acute fracture or traumatic malalignment of the cervical spine.
--- NOTE | 2024-09-12 16:42 | EDPHYS ---
Physician Documentation [facility] Name: Adri Serrano Age: 79 yrs Sex: Female : 1945 Arrival Date: 09/12/2024 Time: 11:16 Bed 24 Private MD: ED Physician Margarito Miller HPI: 09/12 12:00 This 79 yrs old Female presents to ER via Wheelchair with complaints of Vomiting. sb4 12:00 The patient presents to the emergency department with nausea, vomiting, diarrhea. sb4 Onset: The symptoms/episode began/occurred this morning. Possible causes: unknown. nausea, vomiting, diarrhea that began this morning. was seen here 3 days ago for sore throat, prescribed steroids, zpack, albuterol. states sore throat and URI symptoms have improved. denies any abdominal pain. Historical: - Allergies: 11:59 Ibuprofen; jl7 - PMHx: 11:59 Diabetes - NIDDM; Thyroid problem; jl7 - Immunization history:: Adult Immunizations unknown. - Infectious Disease History:: Denies. - Social history:: Smoking status: unknown. ROS: 12:00 Constitutional: Negative for fever, chills, and weight loss, sb4 12:00 Abdomen/GI: Positive for nausea, vomiting, and diarrhea, 12:00 All other systems are negative, Exam: 12:00 Head/Face: Normocephalic, atraumatic. Eyes: Extra-ocular motions intact. Periorbital sb4 areas with no swelling, redness, or edema. Cardiovascular: Regular rate and rhythm with a normal S1 and S2. Respiratory: No increased work of breathing, no retractions or nasal flaring. Abdomen/GI: Soft, non-tender, no distension. Skin: Warm, dry with normal turgor. Normal color with no rashes, no lesions, and no evidence of cellulitis. 12:00 Constitutional: The patient appears alert, awake, pale, 12:00 ENT: Mouth: Oral mucosa: dry, moderate sized bony growth hard palate, Vital Signs: 11:58 BP 198 / 85; Pulse 60; Resp 17; Temp 96.8; Pulse Ox 99% ; Weight 53.52 kg; Height 5 ft. jl7 0 in. ; 12:00 BP 189 / 94; Pulse 60; Resp 19; Pulse Ox 99% on R/A; me1 13:00 BP 180 / 81; Pulse 63; Resp 20; Pulse Ox 98% on R/A; me1 14:00 BP 114 / 102; Pulse 77; Resp 22; Pulse Ox 100% on R/A; me1 15:00 BP 142 / 65; Pulse 66; Resp 21; Pulse Ox 100% on R/A; me1 16:00 BP 132 / 56; Pulse 68; Resp 21; Pulse Ox 91% on R/A; me1 17:00 BP 132 / 66; Pulse 66; Resp 17; Pulse Ox 99% ; me1 18:00 BP 129 / 58; Pulse 69; Resp 18; Pulse Ox 93% on R/A; me1 19:00 BP 117 / 95; Pulse 70; Resp 21; Pulse Ox 99% on R/A; me1 20:00 BP 121 / 59; Pulse 68; Resp 19; Pulse Ox 94% on R/A; me1 21:00 BP 118 / 60; Pulse 68; Resp 18; Pulse Ox 94% on R/A; me1 22:00 BP 115 / 61; Pulse 68; Resp 19; Pulse Ox 95% ; me1 11:58 Body Mass Index 23.05 (53.52 kg, 152.4 cm) jl7 MDM: 11:49 Medical Screening Exam initiated sb4 15:03 ED course: patient slipped and fell while going to the restroom unassisted. she states sb4 that she hit her head on a "big round object" in the bathroom but did not lose consciousness. states she feels okay currently, no headache or dizziness. 16:43 Data reviewed: vital signs, nurses notes, lab test result(s), radiologic studies, and sb4 as a result, I will admit patient. Consideration of Admission/Observation Patient was admitted/placed on observation. Counseling: I had a detailed discussion with the patient and/or guardian regarding the historical points, exam findings, and any diagnostic results supporting the discharge/admit diagnosis, the presence of at least one elevated blood pressure reading (>120/80) during this emergency department visit, lab results, radiology results, the need for further work-up and treatment in the hospital. 09/12 11:59 Order name: CBC with Diff; Complete Time: 12:24 sb4 09/12 11:59 Order name: CMP; Complete Time: 12:45 sb4 09/12 11:59 Order name: Lipase; Complete Time: 12:45 sb4 09/12 16:34 Order name: Glucose, Ancillary Testing; Complete Time: 16:36 EDMS 09/12 17:30 Order name: Basic Metabolic Panel EDMS 09/12 17:30 Order name: Basic Metabolic Panel EDMS 09/12 17:30 Order name: CBC with Automated Diff EDMS 09/12 17:30 Order name: CBC with Automated Diff EDMS 09/12 17:30 Order name: Procalcitonin EDMS 09/12 17:30 Order name: Procalcitonin; Complete Time: 18:37 EDMS 09/12 17:31 Order name: Hemoglobin A1c EDMS 09/12 17:31 Order name: Hemoglobin A1c EDMS 09/12 22:47 Order name: Glucose, Ancillary Testing EDMS 09/12 12:46 Order name: CT Abd/Pelvis - IV Contrast Only; Complete Time: 14:12 sb4 09/12 14:12 Order name: Abdomen Limited US; Complete Time: 15:13 sb4 09/12 14:55 Order name: Head C Spine MPR Wo Con CT; Complete Time: 15:55 sb4 09/12 11:59 Order name: IV Saline Lock; Complete Time: 12:17 sb4 09/12 11:59 Order name: Labs collected and sent; Complete Time: 12:17 sb4 09/12 15:14 Order name: PO challenge; Complete Time: 16:18 sb4 09/12 15:55 Order name: Misc. Order: ambulate with assistance; Complete Time: 17:15 sb4 09/12 15:55 Order name: Accucheck; Complete Time: 16:22 sb4 Administered Medications: 12:29 Drug: Ondansetron IVP 4 mg IVP once; over 2 minutes Route: IVP; Site: right antecubital;me1 12:30 Follow up: Response: No adverse reaction; Nausea is decreased me1 12:29 Drug: NS 0.9% IV 1000 ml IV at 1 bolus Per protocol; to be given as a bolus over 60 me1 minutes Route: IV; Rate: 1 bolus; Site: right antecubital; 14:05 Follow up: Response: No adverse reaction; IV Status: Completed infusion; IV Intake: me1 1000ml 14:05 Drug: NS 0.9% IV 1000 ml IV at 1000 ml once; to be given as a bolus over 60 minutes me1 Route: IV; Rate: 1000 ml; Site: right antecubital; 17:17 Follow up: Response: No adverse reaction; IV Status: Completed infusion; IV Intake: me1 1000ml 14:05 Drug: Promethazine IVP 12.5 mg IVP once Route: IVP; Site: right antecubital; me1 15:35 Follow up: Response: No adverse reaction; Nausea is decreased me1 Point of Care Testing: Blood Glucose: 16:22 Blood Glucose: 329 mg/dL; me1 Ranges: Critical Glucose Levels:Adult <50 mg/dl or >400 mg/dl <40 mg/dl or >180 mg/dl Disposition: 09/13 07:09 Co-signature as Attending Physician, Margarito Miller MD I reviewed the patient's care rn provided by the Advanced Practice Provider and agree with the diagnosis and treatment plan. Disposition Summary: 09/12/24 16:41 Hospitalization Ordered Notes: Hospitalization Status: Observation sb4 Provider: Abel Esqueda sb4 Condition: Fair sb4 Problem: new sb4 Symptoms: are unchanged sb4 Bed/Room Type: Standard sb4 Location: Telemetry/MedSurg (Inpatient)(09/13/24 03:21) Room Assignment: 210(09/13/24 03:21) Diagnosis - Viral gastroenteritis sb4 - Weakness sb4 - Fall on same level, unspecified sb4 Forms: - Medication Reconciliation Form sb4 - SBAR form sb4 - Leadership Thank You Letter sb4 Signatures: Dispatcher [employer] Etta Brunson RN RN kl Nieto, Roman, MD MD rn Leal, Jahala, RN RN [email or web address] Jackie Arauz RN RN 1 Tracee Thompson PADimple PAGiovaniC sb4 Madeline Wills, RN RN me1 Corrections: (The following items were deleted from the chart) 09/12 22:06 16:41 Telemetry/MedSurg (observation) sb4 vc1 22:06 16:41 sb4 vc1 09/13 03:21 12 22:06 [facility] [place] ER HOLD vc1 09/13 03:21 09/12 22:06 ERHOLD- vc1
--- NOTE | 2024-09-12 16:42 | ER ---
Nurse's Notes [facility] Name: Adri Serrano Age: 79 yrs Sex: Female : 1945 Arrival Date: 09/12/2024 Time: 11:16 Bed 24 Private MD: Diagnosis: Viral gastroenteritis;Weakness;Fall on same level, unspecified Presentation: 09/12 11:58 Chief complaint: Patient's son or daughter states: N/V/D since this morning. jl7 Coronavirus screen: Client presents with at least one sign or symptom that may indicate coronavirus-19. Ebola Screen: No symptoms or risks identified at this time. Initial Sepsis Screen: Does the patient meet any 2 criteria? No. Patient's initial sepsis screen is negative. Does the patient have a suspected source of infection? No. Patient's initial sepsis screen is negative. Risk Assessment: Do you want to hurt yourself or someone else? Patient reports no desire to harm self or others. Onset of symptoms was September 12, 2024. 11:58 Method Of Arrival: Wheelchair [facility] 11:58 Acuity: LAMAR 3 jl7 Triage Assessment: 11:59 General: Appears in no apparent distress. uncomfortable, Behavior is calm, cooperative. jl7 Pain: Complains of pain in mouth. GI: Reports diarrhea, nausea, vomiting. Historical: - Allergies: 11:59 Ibuprofen; jl7 - PMHx: 11:59 Diabetes - NIDDM; Thyroid problem; jl7 - Immunization history:: Adult Immunizations unknown. - Infectious Disease History:: Denies. - Social history:: Smoking status: unknown. Screenin:05 [facility] ED Fall Risk Assessment (Adult) History of falling in the last 3 months, me1 including since admission No falls in past 3 months (0 pts) Confusion or Disorientation No (0 pts) Intoxicated or Sedated No (0 pts) Impaired Gait Yes (1 pt) Mobility Assist Device Used Yes (1 pt) Altered Elimination No (0 pt) Score/Fall Risk Level 0 - 2 = Low Risk Maintained a safe environment, Provided non-skid footwear, Hourly rounding (assess needs \T\ fall precautionary measures) done. Abuse screen: Denies threats or abuse. Nutritional screening: No deficits noted. Tuberculosis screening: No symptoms or risk factors identified. 15:42 [facility] ED Fall Risk Assessment (Adult) History of falling in the last 3 months, me1 including since admission Yes- single mechanical fall (1 pt) Confusion or Disorientation No (0 pts) Intoxicated or Sedated No (0 pts) Impaired Gait Yes (1 pt) Mobility Assist Device Used Yes (1 pt) Altered Elimination No (0 pt) Score/Fall Risk Level 3 or more points = High Risk Maintained a safe environment, Hourly rounding (assess needs \T\ fall precautionary measures) done, Used ambulatory aids as needed (educated on \T\ assisted with), Implemented a Fall Risk Plan of Care. Assessment: 12:05 General: Appears ill, well groomed, well developed, well nourished, Behavior is calm, me1 cooperative, appropriate for age, Reports n/v/d since this morning. Pain: Denies pain. Neuro: Level of Consciousness is awake, alert, obeys commands, Oriented to person, place, time, situation, Appropriate for age. Cardiovascular: Patient's skin is warm and dry. Respiratory: Airway is patent Respiratory effort is even, unlabored, Respiratory pattern is regular, symmetrical. GI: Abdomen is non-distended, Reports diarrhea, nausea, vomiting, since this morning. : No signs and/or symptoms were reported regarding the genitourinary system. EENT: No signs and/or symptoms were reported regarding the EENT system. Derm: Skin is intact, is healthy with good turgor, Skin is pink, warm \T\ dry. Musculoskeletal: No signs and/or symptoms reported regarding the musculoskeletal system. Circulation, motion, and sensation intact. Range of motion: intact in all extremities. 14:50 Reassessment: Patient assisted to bathroom with tech. Tech waited outside of door and me1 instructed patient to pull the cord when finished. Prentiss the patient fall and went into assist the patient up. Patient did hit her head per patient. Informed ELIZABETH Herrera and charge nurse Fany Platt RN. Head to toe assessment done with no injury noted. 17:15 Reassessment: Ambulated patient with walker, very unsteady gait noted as patient me1 continually stumbles to the side. Informed ELIZABETH Herrera. Vital Signs: 11:58 BP 198 / 85; Pulse 60; Resp 17; Temp 96.8; Pulse Ox 99% ; Weight 53.52 kg; Height 5 ft. jl7 0 in. ; 12:00 BP 189 / 94; Pulse 60; Resp 19; Pulse Ox 99% on R/A; me1 13:00 BP 180 / 81; Pulse 63; Resp 20; Pulse Ox 98% on R/A; me1 14:00 BP 114 / 102; Pulse 77; Resp 22; Pulse Ox 100% on R/A; me1 15:00 BP 142 / 65; Pulse 66; Resp 21; Pulse Ox 100% on R/A; me1 16:00 BP 132 / 56; Pulse 68; Resp 21; Pulse Ox 91% on R/A; me1 17:00 BP 132 / 66; Pulse 66; Resp 17; Pulse Ox 99% ; me1 18:00 BP 129 / 58; Pulse 69; Resp 18; Pulse Ox 93% on R/A; me1 19:00 BP 117 / 95; Pulse 70; Resp 21; Pulse Ox 99% on R/A; me1 20:00 BP 121 / 59; Pulse 68; Resp 19; Pulse Ox 94% on R/A; me1 21:00 BP 118 / 60; Pulse 68; Resp 18; Pulse Ox 94% on R/A; me1 22:00 BP 115 / 61; Pulse 68; Resp 19; Pulse Ox 95% ; me1 11:58 Body Mass Index 23.05 (53.52 kg, 152.4 cm) 7 ED Course: 11:18 Patient arrived in ED. mr 11:19 Tracee Thompson PA-C is PHCP. sb4 11:19 Margarito Miller MD is Attending Physician. sb4 11:59 Triage completed. jl7 11:59 Arm band placed on right wrist. jl7 12:03 Madeline Wills, TANYA is Primary Nurse. me1 12:05 Patient has correct armband on for positive identification. Bed in low position. Call [facility] [place] in reach. Side rails up X2. Provided Education on: POC. Verbalized understanding. Client placed on continuous cardiac and pulse oximetry monitoring. NIBP monitoring applied. Pulse ox on. NIBP on. Warm blanket given. 12:05 No provider procedures requiring assistance completed. me1 12:17 CBC with Diff Sent. me1 12:17 CMP Sent. me1 12:17 Lipase Sent. me1 12:17 Initial lab(s) drawn, by me, sent to lab. Inserted saline lock: 24 gauge in right me1 antecubital area, using aseptic technique. 13:49 CT Abd/Pelvis - IV Contrast Only In Process Unspecified. EDMS 14:37 Abdomen Limited US In Process Unspecified. EDMS 15:43 Head C Spine MPR Wo Con CT In Process Unspecified. EDMS 16:40 Abel Esqueda is Hospitalizing Provider. sb4 23:39 Patient admitted, IV remains in place. me1 Administered Medications: 12:29 Drug: Ondansetron IVP 4 mg IVP once; over 2 minutes Route: IVP; Site: right antecubital;me1 12:30 Follow up: Response: No adverse reaction; Nausea is decreased me1 12:29 Drug: NS 0.9% IV 1000 ml IV at 1 bolus Per protocol; to be given as a bolus over 60 me1 minutes Route: IV; Rate: 1 bolus; Site: right antecubital; 14:05 Follow up: Response: No adverse reaction; IV Status: Completed infusion; IV Intake: me1 1000ml 14:05 Drug: NS 0.9% IV 1000 ml IV at 1000 ml once; to be given as a bolus over 60 minutes me1 Route: IV; Rate: 1000 ml; Site: right antecubital; 17:17 Follow up: Response: No adverse reaction; IV Status: Completed infusion; IV Intake: me1 1000ml 14:05 Drug: Promethazine IVP 12.5 mg IVP once Route: IVP; Site: right antecubital; me1 15:35 Follow up: Response: No adverse reaction; Nausea is decreased me1 Medication: 12:05 VIS not applicable for this client. me1 Point of Care Testing: Blood Glucose: 16:22 Blood Glucose: 329 mg/dL; me1 Ranges: Intake: 14:05 IV: 1000ml; Total: 1000ml. me1 17:17 IV: 1000ml; Total: 2000ml. me1 Outcome: 16:41 Decision to Hospitalize by Provider. sb4 23:39 Admitted to ER Hold. Please see [facility] for further documentation. me1 23:39 Condition: stable 23:39 Instructed on the need for admit, 09/13 04:41 Patient left the ED. mt4 Signatures: Dispatcher [employer] EDEmani Hess, Tristan Reg Warren Singh RN RN jl7 Tracee Thompson PA-C PA-C sb4 Madeline Wilsl RN RN me1 Thea Wynn, RN RN mt4 Corrections: (The following items were deleted from the chart) 09/12 15:42 14:50 Reassessment: Patient assisted to bathroom with tech. Tech waited outside of door me1 and instructed patient to pull the cord when finished. Prentiss the patient fall and went into assist the patient up. Patient did hit her head per patient. Informed ELIZABETH Herrera and charge nurse Fany Platt RN. me1
[2024-09-12] MEDS ORDERED: ZOLPIDEM TARTRATE 5 MG TABLET PO PRN (17:22)
[2024-09-12] MEDS ORDERED: ACETAMINOPHEN 500 MG TAB PO PRN (17:22)
[2024-09-12] MEDS ORDERED: ACETAMINOPHEN 325 MG TABLET PO PRN (17:22)
[2024-09-12] MEDS ORDERED: ALBUTEROL 2.5 MG/3 ML NEB SOL NEB PRN (17:22)
[2024-09-12] MEDS ORDERED: ONDANSETRON 4 MG/2 ML VIAL IV PRN (17:22)
[2024-09-12] MEDS ORDERED: GLUCAGON 1 MG/VIAL IM PRN (17:27)
[2024-09-12] MEDS ORDERED: D10W 125 ML IV PRN (17:27)
[2024-09-12] MEDS ORDERED: LOPERAMIDE HCL 2 MG CAPSULE PO PRN (17:29)
--- NOTE | 2024-09-12 17:40 | P.HP ---
Certification for Inpatient Patient admitted to: Inpatient With expected LOS: >2 Midnights Patient will require the following post-hospital care: None Practitioner: I am a practitioner with admitting privileges, knowledge of patient current condition, hospital course, and medical plan of care. Services: Services provided to patient in accordance with Admission requirements found in Title 42 Section 412.3 of the Code of Federal Regulations Patient History Date of Service: 09/12/24 Reason for admission: acute enteritis, DM with hyperglycemia Allergies ibuprofen Allergy (Verified 08/15/19 11:31) MIGRAINES Home medications list reviewed: Yes Home Medications: Alendronate Sodium [Fosamax] 70 mg PO ONCE 09/19/15 Calcium Carbonate/Vitamin D3 [Caltrate 600 + D Tablet] 1 each PO DAILY 09/19/15 Levothyroxine [Synthroid] 88 mcg PO [id number] 09/19/15 Losartan Potassium [Cozaar] 50 mg PO [id number] 09/19/15 Metformin ER [Glucophage ER] 500 mg PO DAILY 09/19/15 Omeprazole [Prilosec] 40 mg PO DAILY 09/19/15 Simvastatin [Zocor] 40 mg PO BEDTIME 09/19/15 Aspirin [Aspir-Low] 81 mg PO DAILY 08/18/19 - Past Medical/Surgical History Diabetic: Yes -: htn -: diabetes -: hysterectomy, tummy tu1987 -: cataracts, with lens implants 2012 - Family History Mother -: Cancer Notes: mother had brain cancer - Social History Alcohol use: No CD- Drugs: No Caffeine use: No Physical Examination - Studies Laboratory Data (last 24 hrs) 09/12/24 09/12/24 12:16 12:16 WBC 14.30 H Hgb 14.2 Hct 43.2 Plt Count 235 Sodium 135 L Potassium 3.8 BUN 30 H Creatinine 1.10 H Glucose 417 H* Total Bilirubin 0.6 AST 18 ALT 22 Alkaline Phosphatase 79 Lipase 43 Assessment and Plan - Advance Directives Does patient have a Living Will: No Does patient have a Durable POA for Healthcare: No
[2024-09-12] MEDS: ENOXAPARIN 30 MG/0.3 ML SQ SCH (18:00)
[2024-09-12] MEDS: NA CHLORIDE 0.9% 1,000 ML IV SCH (18:00)
[2024-09-12] MEDS ORDERED: HOME MED 1 EA UNK (Simvastatin [Zocor*] 40 MG Tablet) PO SCH (21:00)
[2024-09-12] MEDS: INSULIN REGULAR (HUMAN) 100 UNIT/ML SQ SCH (21:00)
[2024-09-12] MEDS: ATORVASTATIN 20 MG TAB PO SCH (21:00)
[2024-09-12 21:34] VITALS: BMI 23.0
[2024-09-12] MEDS ORDERED: ATORVASTATIN 20 MG TAB ONE (22:38)
[2024-09-12] MEDS ORDERED: INSULIN REGULAR (HUMAN) 100 UNIT/ML ONE (22:38)
[2024-09-12] MEDS ORDERED: Levofloxacin500mg IV 500 MG/100 ML BAG IV ONE (22:39)
[2024-09-12] MEDS ORDERED: ENOXAPARIN 30 MG/0.3 ML SQ ONE (22:39)
[2024-09-12] MEDS: Levofloxacin500mg IV 500 MG/100 ML BAG IV SCH (22:49)
[2024-09-13] MEDS ORDERED: METRONIDAZOLE 500mg IVPB 500 MG/100 ML BAG IV ONE (02:05)
[2024-09-13] MEDS: METRONIDAZOLE 500mg IVPB 500 MG/100 ML BAG IV SCH (02:08)
[2024-09-13] MEDS ORDERED: ONDANSETRON 4 MG/2 ML VIAL ONE (04:10)
[2024-09-13 04:36] LABS: Absolute Basophils 0.1 K/uL (0-0.5); Absolute Lymphocytes (CBC) 2.8 K/uL (0.7-4.9); Absolute Monocytes 0.7 K/uL (0.1-1.3); Absolute Neutrophil 6.7 K/uL (1.8-8.0); Basophils % 0.7 % (0-1.3); Eosinophils % 0.3 % (0-4.4); Hematocrit 35.7 % (36.0-45.0); Hemoglobin 12.6 g/dL (12.0-15.0); Lymphocytes % 27.5 % (15.3-44.8); MCHC 35.2 g/dL (32.0-36.0); MCV 90.9 fL (80-100); Monocytes % 6.4 % (3.3-12.3); Neutrophils % 65.1 % (41.7-73.7); Platelets 235 thou/uL (152-406); RBC Red Blood Cell Count 3.93 M/uL (3.86-4.86); Red Cell Distribution Width 13.3 % (12.1-15.2)
[2024-09-13 04:53] LABS: Anion Gap 10.5 mEq/L (5.0-15.0); Potassium 3.5 mEq/L (3.5-5.1)
[2024-09-13] MEDS: PANTOPRAZOLE 40MG TABLET PO SCH (05:47)
[2024-09-13] MEDS: LEVOTHYROXINE SOD 0.088 MG TAB PO SCH (05:47)
[2024-09-13] MEDS ORDERED: METFORMIN ER 500 MG TAB PO SCH (08:00)
[2024-09-13] MEDS ORDERED: ENOXAPARIN 40 MG/0.4 ML SQ SCH (09:00)
[2024-09-13] MEDS: NA CHLORIDE 0.9% 1,000 ML IV SCH (09:58)
[2024-09-13] MEDS: ASPIRIN EC 81 MG TAB PO SCH (10:03)
--- NOTE | 2024-09-13 11:53 | HP ---
Date of Admission: 09/12/2024 Chief Complaint: Nausea, vomiting, diarrhea, and sore throat. History Of Present Illness: This is an 79-year-old female patient, who got sick around [place] time with some sore throat and she came into emergency room. After she was evaluated, she was discharged to go home. The patient was taking her medication as prescribed from emergency room and as of yesterday, she started to have nausea, vomiting, and had multiple episodes of vomiting at home and then diarrhea started, so she came into emergency room as she was not able to keep anything down for last day or 2 days. After she was evaluated, she was admitted to the hospital. I saw her in emergency room. Her daughter was with her at bedside. The patient also has her son who lives with her who is sick with similar symptoms. The patient denies any abdominal pain. No blood in stool. No hematemesis. Allergies: TO ADVIL CAUSING MIGRAINE TYPE OF SIDE EFFECT. Medications: Alendronate 70 mg once a week, aspirin 81 mg daily, Caltrate plus D 1 tablet 2 times a day, glimepiride 2 mg takes 2 tablets in the morning and 1 tablet in the evening, levothyroxine 88 mcg daily, memantine 10 mg twice a day, metformin 500 mg 2 times a day, omeprazole 40 mg daily, rosuvastatin 40 mg daily, vitamin B12 500 mcg daily. Review of Systems: GI: As mentioned above. ENT: As mentioned above. All other systems reviewed and negative. Past Medical History: Type 2 diabetes mellitus which is uncontrolled, hypothyroidism, hypertension, mixed hyperlipidemia, gastroesophageal reflux disease, overactive bladder, insomnia, urge incontinence, impaired memory, osteoporosis. Past Surgical History: Significant for hysterectomy, bladder suspension. Family History: Father , had motor vehicular accident. Mother , had brain cancer and epilepsy. Brother had diabetes, heart disease, and stroke. Social History: Negative for smoking. Use of alcohol rarely. Physical Examination: Vital Signs: Height 5 feet, weight 117 pounds. Temperature 96.8, pulse 60, respiratory rate 17, blood pressure 198/85, oxygen saturation 99%. General: The patient appears weaker than normal, not in any distress. Awake, alert. HEENT: Head atraumatic, normocephalic. Conjunctivae nonerythematous. Sclerae white. Mouth, no thrush or edema noted. Ears/Nose, no mass, lesion, discharge noted. Mouth examination shows extremely dry oral mucosa. Neck: Supple. No JVD, lymph nodes, bruit, thyromegaly noted. Lungs: Bilateral good equal air entry. Clear to auscultation. No rhonchi. No rales. Heart: Normal heart sounds, no murmur or gallop. Abdomen: Soft, bowel sounds normal. No guarding, rigidity, tenderness, mass, hepatosplenomegaly, distention, or bruit noted. Extremities: No leg edema. No calf tenderness. Skin: No rash, ulcer, cellulitis. Lymphatics: No lymph node enlargement in neck, supraclavicular, infraclavicular region. Neuro: No focal neurological deficit. Chest: Unremarkable. External Genitalia: Deferred. Rectal: Deferred. Laboratory Data: WBC 14.3, hemoglobin 14.2, platelets 235. Sodium 135, potassium 3.8, chloride 105, bicarb 22, BUN 30, creatinine 1.10, glucose 417. Liver function tests unremarkable. Lipase 43. Procalcitonin less than 0.05. CAT scan of abdomen and pelvis shows moderate length segment of small bowel wall thickening and mild hyperenhancement consistent with enteritis. No evidence of bowel obstruction. Presence of gallstones without any evidence of cholecystitis. CAT scan of the head without contrast was negative for any acute intracranial changes. Right upper quadrant abdominal ultrasound showed gallstone, no evidence of cholecystitis. Impression: 1. Acute gastroenteritis. 2. Volume depletion. 3. Type 2 diabetes mellitus, uncontrolled. 4. Hypertension. 5. Hypothyroidism. 6. Mixed hyperlipidemia. 7. Gastroesophageal reflux disease. 8. Osteoporosis. 9. Insomnia. Plan: We will go ahead and admit the patient to hospital for further evaluation and management of this problem. The patient is appropriate. For acute gastroenteritis, we will go ahead and start her on empiric antibiotics considering elevated WBC count. For her volume depletion, we will go ahead and give IV fluid hydration and we will repeat her blood work tomorrow. I will see her tomorrow morning for followup. For her diabetes, we will manage that with sliding scale insulin at this time. For hypothyroidism, continue her levothyroxine per order. For her hyperlipidemia, continue statin therapy per order. No need for further intervention. Total time spent was 80 minutes including review of last office visit record from 08/30/2024, communication with emergency room provider, review of emergency room visit record, and performing today's evaluation and management. MAIKEL/MODL Voice ID: [id number] COLBY
--- NOTE | 2024-09-13 11:59 | PN ---
Date of Progress Note: 09/13/2024 Subjective: The patient was seen this morning for followup. Her son was present with her at bedside . She feels a lot better overnight. Denies any complaints. She looks lot more stronger this mornin g than yesterday and denies any abdominal pain, nausea, vomiting, or diarrhea overnight. Objective: Vital Signs: Reviewed. HEENT: Unremarkable. Her oral mucosa is moist and normal and shows significant improvement compared to yesterday. Lungs: Clear to auscultation. Heart: Sounds normal. Abdomen: Soft. Bowel sounds normal. No guarding, rigidity, tenderness, distention. Extremities: No leg edema. Laboratory Data: WBC 10.3, hemoglobin 12.6, platelets 235. Sodium 141, potassium 3.5, chloride 113, bicarb 21, BUN 17, creatinine 0.80, glucose 134, hemoglobin A1c 9.1. Impression: 1.Acute gastroenteritis. 2.Volume depletion. 3.Type 2 diabetes mellitus, uncontrolled. Plan: We will go ahead and continue IV fluid, but reduce rate. We will continue current empiric ant ibiotic for gastroenteritis. Continue current diabetes management and I will see her tomorrow for fo regina. Consult Physical Therapy and possible discharge to go home tomorrow. We will advance her di et today. Continue current DVT prophylaxis and plan of treatment discussed with the patient and the patient's son. MAIKEL/MODL Voice ID: [id number] Report ID: [id number]
[2024-09-13] MEDS: POTASSIUM CL SA 10 MEQ TAB PO ONE (12:59)
[2024-09-13 21:24] VITALS: O2SAT 97
[2024-09-14] MEDS: Levofloxacin 250mg IV 250 MG/50 ML BAG IV SCH (00:15)
[2024-09-14 10:05] VITALS: BP 144/70; TEMP 98.6
--- NOTE | 2024-09-14 11:37 | DS ---
Date of Discharge: 09/14/2024 Disposition: Discharged to go home. Physical Examination: HEENT: Unremarkable. Lungs: Clear to auscultation. Heart: Sounds normal. Abdomen: Soft. Bowel sounds normal. No guarding, rigidity, tenderness, distention. Extremities: No leg edema. Laboratory Data: Upon admission, WBC 14.3, hemoglobin 14.2, platelets 235. Yesterday, WBC 10.3, hem oglobin 12.6, platelets 235. For chemistry upon admission, sodium 135, potassium 3.8, chloride 105, bicarb 22, BUN 30, creatinine 1.10, glucose 417. Liver function tests unremarkable. Procalcitonin l ess than 0.05. Yesterday, sodium 141, potassium 3.5, chloride 113, bicarb 21, BUN 17, creatinine 0.8 0, glucose 134. Hemoglobin A1c 9.1. Discharge Medications And Instructions: Continue all prior home medications. Start following new me dication: 1.Levaquin 250 mg 1 tablet daily for 5 days. 2.Metronidazole 250 mg take 1 tablet 3 times a day for 5 days, take it with food. 3.Follow up at my office next week. Hospital Course: This is an 79-year-old pleasant female patient who came into emergency room with co mplaints of nausea, vomiting, diarrhea, and sore throat. Please see dictated H and P for more inform ation. After patient was evaluated in the emergency room, she was admitted to the hospital with acut e gastroenteritis with volume depletion and acute kidney injury. Please see dictated H and P for mor e information. After she was evaluated in the ER, she was admitted to the hospital. IV fluid was st arted. Empiric IV antibiotics were started. Initially, she was started on liquid diet. Subsequentl y, her diet was advanced. She has tolerated diet very well and has not had any more recurrence of na usea, vomiting, or diarrhea after her admission to hospital. She started to ambulate well and today she is feeling fine. She is asymptomatic and was discharged to go home in stable condition with abov e-mentioned medications and instructions. Final Diagnoses: 1.Acute gastroenteritis. 2.Acute kidney injury. 3.Volume depletion. 4.Type 2 diabetes mellitus, uncontrolled. 5.Hypertension. 6.Hypothyroidism. 7.Mixed hyperlipidemia. 8.Gastroesophageal reflux disease. 9.Osteoporosis. 10.Insomnia. Total time spent 35 minutes. MAIKEL/MODL Voice ID: [id number] Report ID: [id number]
== END 2024-09-14 11:21 | disposition home or self-care (01) | DRG 392 ==
LOC: ER 11:16 → ERHOLD 17:22 → 2ND 09-13 03:58
PROVIDERS: ADMIT Internal Medicine; ATTEND Internal Medicine
DX: A08.4 Viral intestinal infection, unspecified (principal); N17.9 Acute kidney failure, unspecified; E11.9 Type 2 diabetes mellitus without complications; E03.9 Hypothyroidism, unspecified; E86.9 Volume depletion, unspecified; Z79.4 Long term (current) use of insulin; E78.5 Hyperlipidemia, unspecified; K21.9 Gastro-esophageal reflux disease without esophagitis; M81.0 Age-related osteoporosis without current pathological fracture; G47.00 Insomnia, unspecified
CPT/HCPCS: 36415; 70450; 72125; 74177; 76705; 80048; 80053; 82947; 83036; 83690; 84145; 85025; 96361; 96374; 96375; 97116; 97161; 97530; 99285; J1650; J2405; J2550; J7030; Q9967

== ENCOUNTER 2024-10-07 03:07 | Emergency (ER) | payer OTHER ==
[2024-10-07] MEDS ORDERED: TRAMADOL HCL 50 MG TAB ONE (04:09)
[2024-10-07] MEDS ORDERED: ACETAMINOPHEN 325 MG TABLET ONE (04:10)
[2024-10-07 04:42] LABS: Absolute Eosinophils 0.2 K/uL (0-0.5); Absolute Lymphocytes (CBC) 3.7 K/uL (0.7-4.9); Absolute Monocytes 0.7 K/uL (0.1-1.3); Absolute Neutrophil 4.7 K/uL (1.8-8.0); Basophils % 0.5 % (0-1.3); Eosinophils % 1.7 % (0-4.4); Hematocrit 42.1 % (36.0-45.0); Hemoglobin 14.3 g/dL (12.0-15.0); Lymphocytes % 39.9 % (15.3-44.8); MCH 31.1 pg (27.0-35.0); MCHC 34.1 g/dL (32.0-36.0); MCV 91.3 fL (80-100); MPV 8.2 fL (7.6-11.3); Neutrophils % 50.9 % (41.7-73.7); Platelets 255 thou/uL (152-406); RBC Red Blood Cell Count 4.61 M/uL (3.86-4.86); Red Cell Distribution Width 14.5 % (12.1-15.2)
[2024-10-07 05:01] LABS: Albumin 3.9 g/dL (3.4-5.0); Albumin/Globulin Ratio 1.1 (1.1-1.8); Anion Gap 10.9 mEq/L (5.0-15.0); Bilirubin Total 0.6 mg/dL (0.2-1.0); Globulin 3.5 g/dL (2.3-3.5); Potassium 3.9 mEq/L (3.5-5.1); Protein, Total 7.4 g/dL (6.4-8.2)
[2024-10-07] MEDS ORDERED: MORPHINE 2 MG/ML SYR ONE (05:34)
[2024-10-07 05:39] LABS: Specific Gravity 1.007 (1.005-1.030); Sqamous Epithelial <5 /HPF (None Seen); Urine Bacteria <20 /HPF (<20); Urine Bilirubin NEGATIVE (Negative); Urine Blood Negative (Negative); Urine Clarity Clear (Clear); Urine Color Colorless (Yellow); Urine Culture Reflex Order NOT NEEDED; Urine Glucose NEGATIVE (Negative); Urine Ketones NEGATIVE (Negative); Urine Microscopic Reflex YN ORDER UMIC; Urine Nitrite NEGATIVE (Negative); Urine Protein NEGATIVE (Negative); Urine RBC <5 /HPF (None Seen); Urine Urobilinogen Normal (Normal); Urine WBC <5 /HPF (<5); Urine pH 7.5 (5.0-7.0)
--- NOTE | 2024-10-07 07:03 | RAD REPORT ---
EXAM: CT Angiography Chest, Abdomen and Pelvis With Intravenous Contrast CLINICAL HISTORY: The patient is 79 years old and is Female; acute back pain TECHNIQUE: Axial computed tomographic angiography images of the chest, abdomen and pelvis with intr avenous contrast. Sagittal and coronal reformatted images were created and reviewed. This CT exam was performed using one or more of the following dose reduction techniques: automated exposure control, adjustment of the mA and/or kV according to patient size, and/or use of iterative reconstruction technique. MIP reconstructed images were created and reviewed. COMPARISON: No relevant prior studies available. FINDINGS: VASCULATURE: Aorta: Scattered atherosclerotic vascular calcifications. No aortic aneurysm. No dissection. Pulmonary arteries: Unremarkable as visualized. No pulmonary embolism is identified. Great vessels of aortic arch: No acute findings. No dissection. No arterial occlusion or sign ificant stenosis. Celiac trunk and mesenteric arteries: No acute findings. No occlusion or significant stenosis. Renal arteries: No acute findings. No occlusion or significant stenosis. Iliac arteries: No acute findings. No occlusion or significant stenosis. CHEST: Lungs: Unremarkable. No mass. No consolidation. Pleural space: Unremarkable. No significant effusion. No pneumothorax. Heart: Unremarkable. No cardiomegaly. No significant pericardial effusion. ABDOMEN: Liver: Unremarkable. No mass. Gallbladder and bile ducts: Cholelithiasis. No ductal dilation. Pancreas: Unremarkable. No ductal dilation. No mass. Spleen: Unremarkable. No splenomegaly. Adrenals: 7 mm right adrenal nodule with attenuation of 35 Hounsfield units. Kidneys and ureters: Unremarkable. No hydronephrosis. No solid mass. Stomach and bowel: Unremarkable. No obstruction. No mucosal thickening. PELVIS: Appendix: No findings to suggest acute appendicitis. Bladder: Unremarkable. No mass. Reproductive: Uterus is not seen. CHEST, ABDOMEN and PELVIS: Intraperitoneal space: Unremarkable. No significant fluid collection. No free air. Bones/joints: Scattered Schmorl's nodes in the lumbar spine. No acute fracture. No dislocation. Soft tissues: Unremarkable. Lymph nodes: 1.3 cm left axillary lymph node. Other findings: Disc bulge at L4-5. IMPRESSION: 1. No acute finding. 2. 1.3 cm left axillary lymph node. Correlate with mammographic history. 3. Cholelithiasis. 4. Scattered Schmorl's nodes in the lumbar spine. 5. Additional non-emergent findings as above. Electronically signed by: José Miguel Beaulieu MD 10/07/2024 06:57 AM ONLINE TUTOR 8 Due to temporary technical issues with the PACS/panOpen reporting system, reports are being raisa d by the in-house radiologist without review as a courtesy to ensure prompt reporting the interpreting radiologist is fully responsible for the content of the report. Transcribed Date/Time: 10/07/2024 7:03 AM
--- NOTE | 2024-10-07 07:03 | EDPHYS ---
Physician Documentation [facility] Name: Adri Serrano Age: 79 yrs Sex: Female : 1945 Arrival Date: 10/07/2024 Time: 03:07 Bed 8 Private MD: ED Physician Margarito Miller HPI: 10/07 03:12 This 79 yrs old Female presents to ER via Unassigned with complaints of Back Pain. rn 03:12 The patient presents with pain that is acute, with no known mechanism of injury. The rn symptoms are located in the right mid back. Onset: The symptoms/episode began/occurred 6 hour(s) ago. The pain does not radiate. Associated signs and symptoms: Pertinent negatives: abdominal pain, chest pain, constipation, dysuria, fever, headache, hematuria, incontinence, nausea, numbness, tingling, urinary retention, vomiting, weakness. Modifying factors: The patient symptoms are alleviated by nothing, the patient symptoms are aggravated by any movement. Severity of symptoms: At their worst the symptoms were moderate, in the emergency department the symptoms are unchanged. The patient has not experienced similar symptoms in the past. Patient reports right flank/back pain that began 6 hours prior to arrival. Initially called [facility], they got refusal and patient tried to drive herself here. Patient states was dark and Directed, ended up having the health counselor escort her here because she could not find the hospital. Patient denies any injury or fall. No fever or chills. No weakness or numbness of lower extremities. No bowel or bladder issues. Denies abdominal pain or vomiting/diarrhea. No blood in stool. Has never had this before.. Historical: - Allergies: 03:12 No Known Allergies; al5 - PMHx: 03:12 Diabetes - NIDDM; Thyroid problem; Hypertensive disorder; al5 - PSHx: 03:12 hysterectomy; al5 - Immunization history:: Adult Immunizations up to date. - Infectious Disease History:: Denies. - Social history:: Smoking status: Patient denies any tobacco usage or history of. - Family history:: not pertinent. - Hospitalizations: : No recent hospitalization is reported. ROS: 03:12 Constitutional: Negative for fever, chills, and weight loss, Cardiovascular: Negative rn for chest pain, palpitations, and edema, Respiratory: Negative for shortness of breath, cough, wheezing, and pleuritic chest pain, Abdomen/GI: Negative for abdominal pain, nausea, vomiting, diarrhea, and constipation, Back: Positive for back pain on right side : Negative for injury, bleeding, discharge, and swelling, MS/Extremity: Negative for injury and deformity, Skin: Negative for injury, rash, and discoloration, Neuro: Negative for headache, weakness, numbness, tingling, and seizure, Exam: 03:12 Constitutional: This is a well developed, well nourished patient who is awake, alert, rn and in no acute distress. Cardiovascular: Regular rate and rhythm. No pulse deficits. Respiratory: No increased work of breathing, no retractions or nasal flaring. Abdomen/GI: Soft, non-tender, no distention, no masses or pulsatile masses Back: No spinal tenderness, no CVA tenderness MS/ Extremity: Pulses equal, no cyanosis. Neurovascular intact. Full, normal range of motion. Equal circumference. Neuro: Awake and alert, GCS 15 Vital Signs: 03:00 BP 128 / 63; Pulse 70; Resp 19; Pulse Ox 99% on R/A; al5 03:09 BP 150 / 61; Pulse 70; Resp 16; Temp 97.2; Pulse Ox 100% on R/A; Weight 54.43 kg; al5 Height 5 ft. 0 in. ; Pain 8/10; 03:30 BP 146 / 83; Pulse 70; Resp 18; Pulse Ox 99% on R/A; al5 04:00 BP 137 / 62; Pulse 65; Resp 18; Pulse Ox 100% ; al5 04:36 BP 139 / 63; Pulse 60; Resp 19; Pulse Ox 99% on R/A; al5 05:27 BP 135 / 70; Pulse 73; Resp 17; Pulse Ox 100% on R/A; al5 05:30 BP 139 / 62; Pulse 73; Resp 19; Pulse Ox 100% on R/A; al5 06:08 BP 110 / 97; Pulse 82; Resp 18; Pulse Ox 97% on R/A; al5 06:30 BP 112 / 61; Pulse 73; Resp 17; Pulse Ox 95% on R/A; al5 07:34 BP 126 / 71; Pulse 87; Resp 15; Pulse Ox 100% ; ko1 09:30 BP 128 / 64; Pulse 75; Resp 18; Pulse Ox 98% on R/A; db 03:09 Body Mass Index 23.44 (54.43 kg, 152.4 cm) al5 03:09 Pain Scale: Adult al5 MDM: 03:07 Medical Screening Exam initiated rn 05:17 ED course: Patient ambulatory to bathroom without assistance. Appears to be doing rn better.. 07:02 Differential diagnosis: arthritis, Osteoarthritis ruptured disc, sprain, rn Ureterolithiasis vertebral fracture, Disc disease, UTI. Data reviewed: vital signs, nurses notes, lab test result(s), radiologic studies, CT scan, and as a result, I will discharge patient. Counseling: I had a detailed discussion with the patient and/or guardian regarding the historical points, exam findings, and any diagnostic results supporting the discharge/admit diagnosis, lab results, radiology results, the need for outpatient follow up, to return to the emergency department if symptoms worsen or persist or if there are any questions or concerns that arise at home. Response to treatment: the patient's symptoms have markedly improved after treatment, and as a result, I will discharge patient. Special discussion: I discussed with the patient/guardian in detail that at this point there is no indication for admission to the hospital. It is understood, however, that if the symptoms persist or worsen the patient needs to return immediately for re-evaluation. Based on the history and exam findings, there is no indication for further emergent testing or inpatient evaluation. I discussed with the patient/guardian the need to see the back specialist for further evaluation of the symptoms. I discussed with the patient/guardian the need to see the primary care provider for further evaluation of the symptoms. ED course: I have personally reviewed all of the results, including but not limited to blood tests and imaging deemed necessary to safely discharge this patient at this time. All results given to and printed out for patient. I personally went over all the results with the patient and answered all questions. Discussed axillary lymph node as well as other incidental findings. Patient will follow-up with PCP and or specialist as discussed. Return precautions given and understood.. 10/07 03:08 Order name: CBC with Diff; Complete Time: 05:17 rn 10/07 03:08 Order name: CMP; Complete Time: : rn 10/07 03:08 Order name: Lipase; Complete Time: rn 10/07 03:08 Order name: Urinalysis w/ reflexes; Complete Time: 05:45 rn 10/07 03:08 Order name: CT Aorta for Dissection rn 10/07 03:08 Order name: IV Saline Lock; Complete Time: 04:19 rn 10/07 03:08 Order name: Labs collected and sent; Complete Time: 04:19 rn Administered Medications: 04:19 Drug: traMADol PO 50 mg PO once Route: PO; al5 07:05 Follow up: Response: No adverse reaction; Pain is decreased al5 04:19 Drug: Acetaminophen PO 650 mg PO once Route: PO; al5 07:05 Follow up: Response: No adverse reaction; Pain is decreased al5 05:39 Drug: morphine IVP or IV 2 mg IVP once over 4 mins Route: IVP; Infused Over: 4 mins; ay Site: right antecubital; 07:05 Follow up: Response: No adverse reaction; Pain is decreased al5 Disposition Summary: 10/07/24 07:03 Discharge Ordered Notes: Location: Home rn Problem: new rn Symptoms: have improved rn Condition: Stable rn Diagnosis - Low back pain rn - Other intervertebral disc degeneration, lumbosacral region rn Followup: rn - With: Private Physician - When: As needed - Reason: Recheck today's complaints, Re-evaluation by your physician Discharge Instructions: - Discharge Summary Sheet rn - Acute Back Pain, Adult rn - Lumbosacral Radiculopathy rn - Musculoskeletal Pain rn - Cholelithiasis rn - Lymphadenopathy rn Forms: - Medication Reconciliation Form rn - 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 - Prescription Opioid Use rn - Patient Portal Instructions rn - Leadership Thank You Letter rn Prescriptions: - gabapentin 100 mg Oral capsule - take 1 capsule ORAL route 2 times per day As needed; 14 capsule; Refills: 0, rn Product Selection Permitted - Tramadol 50 mg Oral Tablet - take 1 tablet ORAL route every 8 hours as needed; 12 tablet; Refills: 0, rn Product Selection Permitted Signatures: Dispatcher [employer] EDMS Margarito Miller MD MD rn Langhorst, Amanda, RN RN al5 Yakubu, Awudu, RN TANYA arrieta Corrections: (The following items were deleted from the chart) 03:09 03:09 Angio Aorta For Dissection+CT.RAD.BRZ ordered. EDMS EDMS 03:13 03:12 Allergies: Ibuprofen; al5 al5
--- NOTE | 2024-10-07 07:03 | ER ---
Nurse's Notes [facility] Name: Adri Serrano Age: 79 yrs Sex: Female : 1945 Arrival Date: 10/07/2024 Time: 03:07 Bed 8 Private MD: Diagnosis: Low back pain;Other intervertebral disc degeneration, lumbosacral region Presentation: 10/07 03:09 Chief complaint: EMS states: patient c/o R lower back pain starting 6 hours ago. states al5 that she was seen by [facility], but had a refusal signed to come to the hospital. states that the pain got worse, so she decided to come be seen. denies any urinary symptoms or injuries. Coronavirus screen: At this time, the client does not indicate any symptoms associated with coronavirus-19. Ebola Screen: No symptoms or risks identified at this time. Initial Sepsis Screen: Does the patient meet any 2 criteria? No. Patient's initial sepsis screen is negative. Does the patient have a suspected source of infection? No. Patient's initial sepsis screen is negative. Risk Assessment: Do you want to hurt yourself or someone else? Patient reports no desire to harm self or others. Onset of symptoms was October 06, 2024. 03:09 Method Of Arrival: EMS: [place] [id number] 03:09 Acuity: LAMAR 3 al5 03:16 Care prior to arrival: Glucose check: 192. al5 Triage Assessment: 03:13 General: Appears in no apparent distress. Behavior is calm, cooperative. Pain: al5 Complains of pain in right mid back and right low back Pain currently is 8 out of 10 on a pain scale. EENT: No signs and/or symptoms were reported regarding the EENT system. Neuro: Level of Consciousness is awake, alert, obeys commands, Oriented to person, place, time, situation. Cardiovascular: Capillary refill < 3 seconds Patient's skin is warm and dry. Respiratory: Airway is patent Respiratory effort is even, unlabored, Respiratory pattern is regular, symmetrical. GI: No signs and/or symptoms were reported involving the gastrointestinal system. : Reports pain in right flank(s). Derm: Skin is intact, Skin is pink, warm \T\ dry. normal. Musculoskeletal: full ROM, no deformities or swelling noted. Historical: - Allergies: 03:12 No Known Allergies; al5 - PMHx: 03:12 Diabetes - NIDDM; Thyroid problem; Hypertensive disorder; al5 - PSHx: 03:12 hysterectomy; al5 - Immunization history:: Adult Immunizations up to date. - Infectious Disease History:: Denies. - Social history:: Smoking status: Patient denies any tobacco usage or history of. - Family history:: not pertinent. - Hospitalizations: : No recent hospitalization is reported. Screenin:15 [facility] ED Fall Risk Assessment (Adult) History of falling in the last 3 months, al5 including since admission No falls in past 3 months (0 pts) Confusion or Disorientation No (0 pts) Intoxicated or Sedated No (0 pts) Impaired Gait Yes (1 pt) Mobility Assist Device Used No (0 pt) Altered Elimination No (0 pt) Score/Fall Risk Level 0 - 2 = Low Risk Oriented to surroundings, Maintained a safe environment, Hourly rounding (assess needs \T\ fall precautionary measures) done. Abuse screen: Denies threats or abuse. Denies injuries from another. Nutritional screening: No deficits noted. Tuberculosis screening: No symptoms or risk factors identified. Assessment: 03:14 Reassessment: see triage assessment. al5 04:00 Reassessment: Patient appears in no apparent distress at this time. No changes from al5 previously documented assessment. Patient and/or family updated on plan of care and expected duration. Pain level reassessed. Patient is alert, oriented x 3, equal unlabored respirations, skin warm/dry/pink. patient able to answer questions correctly and properly, but has been forgetful. had ambulated with patient to the bathroom to obtain clean catch urine sample and when patient came out, she wanted to know where the nurse was and had forgotten to get a urine sample even with the cup in her hand. ambulated with patient back to the patient room. MD notified and aware. 05:41 Reassessment: Patient appears in no apparent distress at this time. No changes from al5 previously documented assessment. Patient and/or family updated on plan of care and expected duration. Pain level reassessed. Patient is alert, oriented x 3, equal unlabored respirations, skin warm/dry/pink. 06:49 Reassessment: Patient appears in no apparent distress at this time. No changes from al5 previously documented assessment. Patient and/or family updated on plan of care and expected duration. Pain level reassessed. Patient is alert, oriented x 3, equal unlabored respirations, skin warm/dry/pink. 07:30 Reassessment: PT PENDING NARCOTIC HOLD TIME. STATES SON IS OUT OF TOWN. FORGOT CELL db PHONE AND DOES NOT KNOW ANYONE'S NUMBER. General: Appears in no apparent distress. comfortable, Behavior is calm, cooperative. Neuro: Level of Consciousness is awake, alert, obeys commands, Oriented to person, place, time, situation. Respiratory: Airway is patent Respiratory effort is even, unlabored, Respiratory pattern is regular, symmetrical. 08:35 Reassessment: Patient appears in no apparent distress at this time. Patient and/or db family updated on plan of care and expected duration. Pain level reassessed. Patient is alert, oriented x 3, equal unlabored respirations, skin warm/dry/pink. 09:52 Reassessment: Patient appears in no apparent distress at this time. Patient and/or db family updated on plan of care and expected duration. Pain level reassessed. Patient is alert, oriented x 3, equal unlabored respirations, skin warm/dry/pink. Vital Signs: 03:00 BP 128 / 63; Pulse 70; Resp 19; Pulse Ox 99% on R/A; al5 03:09 BP 150 / 61; Pulse 70; Resp 16; Temp 97.2; Pulse Ox 100% on R/A; Weight 54.43 kg; al5 Height 5 ft. 0 in. ; Pain 8/10; 03:30 BP 146 / 83; Pulse 70; Resp 18; Pulse Ox 99% on R/A; al5 04:00 BP 137 / 62; Pulse 65; Resp 18; Pulse Ox 100% ; al5 04:36 BP 139 / 63; Pulse 60; Resp 19; Pulse Ox 99% on R/A; al5 05:27 BP 135 / 70; Pulse 73; Resp 17; Pulse Ox 100% on R/A; al5 05:30 BP 139 / 62; Pulse 73; Resp 19; Pulse Ox 100% on R/A; al5 06:08 BP 110 / 97; Pulse 82; Resp 18; Pulse Ox 97% on R/A; al5 06:30 BP 112 / 61; Pulse 73; Resp 17; Pulse Ox 95% on R/A; al5 07:34 BP 126 / 71; Pulse 87; Resp 15; Pulse Ox 100% ; ko1 09:30 BP 128 / 64; Pulse 75; Resp 18; Pulse Ox 98% on R/A; db 03:09 Body Mass Index 23.44 (54.43 kg, 152.4 cm) al5 03:09 Pain Scale: Adult al5 ED Course: 03:07 Patient arrived in ED. rn 03:07 Margarito Miller MD is Attending Physician. rn 03:09 Guerita Edwards RN is Primary Nurse. al5 03:12 Triage completed. al5 03:14 Arm band placed on right wrist. Patient placed in the treatment room, on a stretcher, al5 on pulse oximetry. 03:15 Patient has correct armband on for positive identification. Bed in low position. Call al5 light in reach. Side rails up X2. Provided Education on: plan of care. 03:15 No provider procedures requiring assistance completed. al5 04:19 CBC with Diff Sent. al5 04:19 CMP Sent. al5 04:19 Lipase Sent. al5 04:20 Inserted saline lock: 22 gauge in right antecubital area, using aseptic technique. br2 Blood collected. Flushed with 10 mL NS. 05:14 CT Aorta for Dissection In Process Unspecified. EDMS 09:53 Client placed on continuous cardiac and pulse oximetry monitoring. NIBP monitoring db applied. radio program director on. Pulse ox on. NIBP on. Warm blanket given. Pillow given. 09:53 IV discontinued, intact, bleeding controlled, No redness/swelling at site. db Administered Medications: 04:19 Drug: traMADol PO 50 mg PO once Route: PO; al5 07:05 Follow up: Response: No adverse reaction; Pain is decreased al5 04:19 Drug: Acetaminophen PO 650 mg PO once Route: PO; al5 07:05 Follow up: Response: No adverse reaction; Pain is decreased al5 05:39 Drug: morphine IVP or IV 2 mg IVP once over 4 mins Route: IVP; Infused Over: 4 mins; ay Site: right antecubital; 07:05 Follow up: Response: No adverse reaction; Pain is decreased al5 Medication: 03:15 VIS not applicable for this client. al5 Outcome: 07:03 Discharge ordered by . rn 09:53 Discharged to home ambulatory, db 09:53 Condition: stable 09:53 Discharge instructions given to patient, Instructed on discharge instructions, follow up and referral plans. Prescriptions given X 2, 09:53 Patient left the ED. db Signatures: Dispatcher [employer] EDMS Margarito Miller MD MD rn Oliver, Kathy RN RN ko1 Leigh Ann Middleton RN RN db Guerita Edwards RN RN al5 Marcella Weiner RN RN br2 Lokesh Puente RN TANAY ay Corrections: (The following items were deleted from the chart) 03:13 03:12 Allergies: Ibuprofen; al5 al5 05:37 04:32 BP 137 / 62; Pulse 65bpm; Resp 18bpm; Pulse Ox 100%; br2 al5
[2024-10-07 10:32] VITALS: TEMP 97.2
[2024-10-07 10:55] VITALS: BP 128/64; O2SAT 98
== END 2024-10-07 09:53 | disposition home or self-care (01) ==
LOC: ER 03:07
DX: M51.379 Other intervertebral disc degeneration, lumbosacral region without mention of lumbar back pain or lower extremity pain (principal)
CPT/HCPCS: 85025; 81001; 36415; 83690; 80053; 71275; 74175; 96374; 99285; Q9967; J2270